=== PATIENT | male | born 1940 | race Caucasian/White ===

== ENCOUNTER 2018-08-01 11:51 | Emergency (ER) | payer OTHER ==
--- OUTSIDE RECORDS SUMMARY | 2018-08-01 11:54 | XMS REPORT | Continuity of Care Document ---
:1940 Author Organization Interface Problems Problem Status Onset Classification Date Comments Source Date Reported Essential Active Problem 06/30/2017 [place] hypertension [facility] Hypertensive Active Problem 07/28/2018 [place] chronic kidney Family disease with Practice stage 1 through stage 4 chronic kidney disease, or unspecified chronic kidney disease History of colon Active Problem 06/30/2017 [place] polyps [facility] HTN Active Problem 06/30/2017 [place] [Hypertension] [facility] Benign prostatic Active Problem 06/30/2017 [place] hypertophy with Family urinary Practice obstruction Chronic kidney Active Problem 06/30/2017 [place] disease, stage Family III Practice PRSNL HST Active Problem 06/30/2017 [place] COLONIC POLYPS Family Practice Weight loss, Active Problem 07/28/2018 [place] abnormal Family Practice Situational Active Problem 07/28/2018 [place] anxiety Family Practice BPH loc w urin Active Problem 07/28/2018 [place] obs/LUTS Family [facility] Neuropathy Active Problem 07/28/2018 [facility] Chronic kidney Active Problem 10/12/2017 [place] disease, stage Family II Practice Moderate single Active Problem 07/28/2018 [place] current episode Family of major Practice depressive disorder Lung nodule seen Active Problem 07/28/2018 [place] on imaging study Family Practice Obstructed, Active Problem 07/28/2018 [place] uropathy [facility] History of Active Problem 07/28/2018 [place] colonic polyps Family Practice Tobacco use Active Problem 07/28/2018 [facility] Hypotension, Active Problem 06/30/2017 [place] unspecified Family hypotension type Practice Obstructive Active Problem 04/28/2017 [place] uropathy [facility] Sebaceous cyst Active Diagnosis 02/23/2017 [facility] Urinary tract Active Diagnosis 02/23/2017 [place] infection Family without Practice hematuria, site unspecified Screen for colon Active Diagnosis 02/23/2017 [place] cancer [facility] Encounter for Active Diagnosis 03/05/2018 [place] screening, Family unspecified Practice Pyuria Active Diagnosis 04/22/2017 [facility] Chronic kidney Active Problem 07/28/2018 [place] disease, stage 2 Family Practice Rib lesion Active Diagnosis 07/08/2017 [facility] Generalized Active Diagnosis 07/06/2017 [facility] abdominal pain Family Practice Weight loss Active Diagnosis 07/06/2017 [facility] Encounter for Active Diagnosis 08/06/2017 [place] immunization Family Practice 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 [place] [facility] 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 Paresthesia Active Problem 07/28/2018 [facility] Paresthesia of Active Problem 06/28/2018 [place] both feet Family Practice Immunization due Active Diagnosis 06/28/2018 [facility] BMI 23.0-23.9, Active Diagnosis 07/28/2018 [place] [facility] adult [facility] Practice Trigger ring Active Diagnosis 03/05/2018 [place] finger of right Family hand Practice Cognitive Active Problem 07/28/2018 [facility] impairment [facility] Practice Loss of appetite Active Problem 07/28/2018 [facility] Impaired fasting Active Problem 07/28/2018 [facility] glucose [facility] abdominal Active Problem 07/28/2018 [facility] mass [facility] Practice Low energy Active Diagnosis 07/28/2018 [facility] Night sweats Active Diagnosis 07/28/2018 [facility] Current moderate Active Diagnosis 07/28/2018 [facility] episode of major Family depressive Practice disorder without prior episode Final: 02/14/2017 [facility] Hypertensive chronic kidney disease with stage 1 through stage 4 chronic kidney disease, or unspecified chronic kidney disease Final: 07/08/2017 [facility] Generalized abdominal pain Final: Abnormal 07/08/2017 [facility] weight loss Medications Medication Details Route Status Patient Ordering Order Source Instructions Provider Date escitalopram 1 tab(s) orally Active 10 mg orally Po[facility] once a day [address] [place] [address] Trintellix 1 tab(s) orally Active 5 mg orally [facility] once a day [address] [place] [address] mirtazapine 1 tab(s) orally Active 15 mg orally Po[facility] once a day (at [address] [place] [address] bedtime) [facility] Readi-Cat 2 450 mL, Inactive [facility] Susp, Oral, 017 Once, first dose 07/06/17 10:00:00 CDT, stop date 07/06/17 10:00:00 CDT Optiray 300 100 mL, Inactive [facility] Injection, 017 IV Push, Once, first dose 07/06/17 10:00:00 CDT, stop date 07/06/17 10:00:00 CDT Saline Lock 10 mL, No Longer [facility] Flush Soln, IV Active 017 Push, As Indicated PRN for flush, first dose 07/06/17 9:50:00 CDT mirtazapine 1 tab(s) orally Active 15 mg orally Pozzi Sugar once a day (at [facility] bedtime) [facility] clonazepam 1 tab(s) orally Active 0.5 mg orally Po[facility] 2-3 times a [facility] clonazepam 1 tab(s) orally Active 0.5 mg orally Po[facility] 2-3 times a [facility] clonazepam 1 tab(s) orally Active 0.5 mg orally [facility] Twice a day [facility] clonazepam 1 tab(s) orally Active 0.5 mg orally [facility] Twice a day [facility] clonazepam 1 tab(s) orally Active 0.5 mg orally [facility] Twice a day [facility] finasteride 1 tab(s) orally Active 5 mg orally [facility] once a day 016 [facility] finasteride 1 tab(s) orally Active 5 mg orally [facility] once a day 016 [facility] Zithromax Z-[place] one oral Active 250 mg oral 2 [facility] today, then 015 [facility] one [facility] lisinopril 1 tab(s) orally Active 20 mg orally [facility] once a day 015 [facility] Lisinopril TAKE ONE NA Active 20 mg [facility] TABLET BY [facility] DAILY [facility] finasteride 1 tab(s) orally Active 5 orally once [facility] a day [facility] Sulfamethoxazol 1 tab(s) orally Active 800 mg-160 mg [facility] e-Trimethoprim orally 2 times [place] DS a day [facility] Finasteride TAKE ONE NA Active 5 mg [facility] TABLET BY [facility] MOUTH DAILY [facility] Rapaflo 1 cap(s) orally Active 8 mg orally [facility] once a day [facility] Rapaflo 1 cap(s) orally Active 8 mg orally [facility] once a day [facility] mirtazapine not defined NA Active [facility] mirtazapine 1 tab(s) orally Active 45 mg orally [facility] Once at night [facility] Zoloft 1 tab(s) orally Active 50 mg orally [facility] once a day [facility] mirtazapine 1 tab(s) orally Active 30 mg orally [facility] Once at night [facility] Allergies, Adverse Reactions, Alerts Substance Category Reaction Severity Reaction Status Date Comments Source type Reported N.K.D.A. Adverse Info Not Adverse Active [facility] Reaction Available Reaction 8 [facility] Immunizations Immunization Date Given Site Status Last Comments Source Updated Influenza High 06/20/2018 completed [place] dose (pre-filled) [facility] Influenza High 07/26/2017 completed [place] dose [facility] (medicare-Pre-fil Practice led) Results Order Name Results Value Reference Date Interpretation Comments Source Range LABORATORY eGFR NonAFR 59 [facility] Amer mL/min/1.7 2016 3m2 LABORATORY Results Reported [facility] 2017 (07/06/17 9:52 AM) LABORATORY Creatinine 1.2 mg/dL 0.6 - 1.3 [facility] 2016 Vital Signs Vital Sign Value Date Comments Source Height 72 07/21/2018 [facility] Weight 170 07/21/2018 [facility] Temperature Oral (F) 96.7 F 07/21/2018 [facility] Diastolic (mm Hg) 78 07/21/2018 [facility] Systolic (mm Hg) 130 07/21/2018 [facility] Height 72 06/20/2018 [facility] Weight 175 06/20/2018 [facility] Temperature Oral (F) 96.7 F 06/20/2018 [facility] Diastolic (mm Hg) 72 06/20/2018 [facility] Systolic (mm Hg) 118 06/20/2018 [facility] Height 72 05/18/2018 [facility] Weight 172 05/18/2018 [facility] Temperature Oral (F) 96.9 F 05/18/2018 [facility] Diastolic (mm Hg) 86 05/18/2018 [facility] Systolic (mm Hg) 142 05/18/2018 [facility] Height 72 05/02/2018 [facility] Weight 175 05/02/2018 [facility] Temperature Oral (F) 96.3 F 05/02/2018 [facility] Diastolic (mm Hg) 80 05/02/2018 [facility] Systolic (mm Hg) 124 05/02/2018 [facility] Height 72 02/21/2018 [facility] Weight 177 02/21/2018 [facility] Temperature Oral (F) 97.2 F 02/21/2018 [facility] Diastolic (mm Hg) 72 02/21/2018 [facility] Systolic (mm Hg) 120 02/21/2018 [facility] Height 72 11/04/2017 [facility] Weight 181.8 11/04/2017 [facility] Temperature Oral (F) 97.6 F 11/04/2017 [facility] Diastolic (mm Hg) 78 11/04/2017 [facility] Systolic (mm Hg) 140 11/04/2017 [facility] Height 72 07/26/2017 [facility] Weight 179.2 07/26/2017 [facility] Temperature Oral (F) 97.4 F 07/26/2017 [facility] Diastolic (mm Hg) 90 07/26/2017 [facility] Systolic (mm Hg) 148 07/26/2017 [facility] Weight Measured 77.11 07/06/2017 [facility] Height 72 06/30/2017 [facility] Weight 173.6 06/30/2017 [facility] Temperature Oral (F) 97.3 F 06/30/2017 [facility] Diastolic (mm Hg) 82 06/30/2017 [facility] Systolic (mm Hg) 120 06/30/2017 [facility] Height 72 05/13/2017 [facility] Weight 177.8 05/13/2017 [facility] Temperature Oral (F) 97.3 F 05/13/2017 [facility] Diastolic (mm Hg) 78 05/13/2017 [facility] Systolic (mm Hg) 138 05/13/2017 [facility] Height 72 04/22/2017 [facility] Weight 176.2 04/22/2017 [facility] Temperature Oral (F) 97.6 F 04/22/2017 [facility] Diastolic (mm Hg) 78 04/22/2017 [facility] Systolic (mm Hg) 126 04/22/2017 [facility] Height 72 04/15/2017 [facility] Weight 180.6 04/15/2017 [facility] Temperature Oral (F) 97.7 F 04/15/2017 [facility] Diastolic (mm Hg) 66 04/15/2017 [facility] Systolic (mm Hg) 104 04/15/2017 [facility] Height 72 02/08/2017 [facility] Weight 198 02/08/2017 [facility] Temperature Oral (F) 96.4 F 02/08/2017 [facility] Diastolic (mm Hg) 64 02/08/2017 [facility] Systolic (mm Hg) 100 02/08/2017 [facility] Encounters Location Location Encounter Encounter Reason Attending ADM DC Status Source Details Type Number For Provider Date Date Visit [facility] Outpatient [id number] Joel Fortune 02/12 02/12 Active Surgical /2016 [facility] Outpatient [id number] Joel Fortune 02/12 02/13 [facility] Outpatient [id number] Joel Fortune 04/16 Active Surgical /2016 [facility] Outpatient [id number] Joel Fortune 04/16 04/17 [facility] Surgical [facility] Outpatient [id number] Joel Fortune 07/06 Active Surgical /2016 [facility] Outpatient [id number] Joel Fortune 07/06 07/07 [facility] Procedures Procedure Code Date Perfomer Comments Source
--- OUTSIDE RECORDS SUMMARY | 2018-08-01 11:54 | XMS REPORT | Clinical Summary ---
:1940 Author Organization [facility] Address [address] [place] [address] Care Team Providers Name Role Phone Joel Fortune MD Primary Care Provider Allergies No Known Allergies Current Medications Prescription Sig. Disp. Refills Start Date End Date Status finasteride (PROSCAR) 5 Take 1 tablet every Active mg tablet day by oral route. clonAZEPAM (KlonoPIN) 0.5 Take 0.5 mg by Active MG tablet mouth 2 (two) times a day as needed for seizures. mirtazapine (REMERON) 15 Take 15 mg by mouth Active MG tablet nightly. Active Problems Not on file Encounters Date Type Specialty Care Team Description 07/26/2018 Office Visit Orthopedic Surgery Levar Vogt, Trigger finger, right ring finger (Primary Dx) 03/03/2018 Office Visit Orthopedic Surgery Levar Vogt, Trigger finger, right ring finger (Primary Dx) after 07/31/2017 Family History Relation Name Status Comments Father Mother Social History Tobacco Use Types Packs/Day Years Used Date Current Some Day Smoker Cigars Smokeless Tobacco: Never Used Alcohol Use Drinks/Week oz/Week Comments Yes Sex Assigned at Date Recorded Not on file Last Filed Vital Signs Vital Sign Reading Time Taken Blood Pressure - - Pulse - - Temperature - - Respiratory Rate - - Oxygen Saturation - - Inhaled Oxygen Concentration - - Weight 77.1 kg (170 lb) 03/03/2018 9:10 AM CDT Height 182.9 cm (6') 03/03/2018 9:10 AM CDT Body Mass Index 23.06 03/03/2018 9:10 AM CDT Plan of Treatment Health Maintenance Due Date Last Done Comments COLON CANCER SCREENING 1992 SHINGRIX VACCINE (#1) 1992 ZOSTER VACCINE 2002 PNEUMOCOCCAL POLYSACCHARIDE VACCINE AGE 65 AND OVER 12/18/2007 PNEUMOCOCCAL-13 12/18/2007 INFLUENZA VACCINE 05/04/2018 07/04/2016 Procedures Procedure Name Priority Date/Time Associated Diagnosis Comments DE INJECT TENDON Routine 07/26/2018 2:50 PM Trigger finger, Results for this SHEATH/LIGAMENT CDT right ring finger procedure are in the results section. DE INJECT TENDON Routine 03/03/2018 9:10 AM Trigger finger, Results for this SHEATH/LIGAMENT CDT right ring finger procedure are in the results section. after 07/31/2017 Results Hand/Upper Extremity Injection/Arthrocentesis (07/26/2018 2:50 PM) Narrative Performed At Levar Vogt MD 07/26/20185:55 PM Hand/Upper Extremity Injection/Arthrocentesis Date/Time: 07/26/2018 3:38 PM Consent given by: patient Site marked: site marked Timeout: Immediately prior to procedure a time out was called to verify the correct patient, procedure, equipment, office support and site/side marked as required Supporting Documentation Indications: pain and therapeutic Procedure Details Condition: trigger finger Site: R ring finger Location: - R ring A1 Preparation: Patient was prepped and draped in the usual sterile fashion Right side: Needle size: 25 G Right ring finger medications administered: 40 mg methylPREDNISolone acetate 40 mg/mL; 1 mL lidocaine 10 mg/mL (1 %) Patient tolerance: patient tolerated the procedure well with no immediate complications Injection Type: tendon sheath Hand/Upper Extremity Injection/Arthrocentesis (03/03/2018 9:10 AM) Narrative Performed At Levar Vogt MD 03/03/2018 11:39 AM Hand/Upper Extremity Injection/Arthrocentesis Date/Time: 03/03/2018 9:42 AM Consent given by: patient Site marked: site marked Timeout: Immediately prior to procedure a time out was called to verify the correct patient, procedure, equipment, office support and site/side marked as required Supporting Documentation Indications: pain and therapeutic Procedure Details Condition: trigger finger Site: R ring finger Location: - R ring A1 Preparation: Patient was prepped and draped in the usual sterile fashion Right side: Needle size: 25 G Right ring finger medications administered: 40 mg methylPREDNISolone acetate 40 mg/mL; 1 mL lidocaine 10 mg/mL (1 %) Patient tolerance: patient tolerated the procedure well with no immediate complications Injection Type: tendon sheath Platelet Rich Plasma Used: no PRP Used Fluoroscopic Needle Guidance Used: no fluoroscopic needle guidance after 07/31/2017 Insurance Payer Benefit Plan / Group Subscriber ID Type Phone Address MEDICARE MEDICARE PART A AND B xxxxxxxxxx Medicare [place], [place] AARP AARP SUPPLEMENT xxxxxxxxxxx Commercial Home: [address] [phone] [address]
--- OUTSIDE RECORDS SUMMARY | 2018-08-01 11:55 | XMS REPORT ---
:1940 Author Organization [employer] Care Team Providers Name Role Phone Joel Fortune Provider Role Unavailable Allergies No Known Allergies Problems Problem Type Condition Code Onset Dates Condition Status Assessment Hypertensive chronic kidney disease I12.9 Active with stage 1 through stage 4 chronic kidney disease, or unspecified chronic kidney disease Problem Essential (primary) hypertension I10 Active Problem Hypertensive chronic kidney disease I12.9 Active with stage 1 through stage 4 chronic kidney disease, or unspecified chronic kidney disease Problem History of colon polyps Z86.010 Active Problem HTN [Hypertension] 401.9 Active Problem Benign prostatic hypertophy with 600.01 Active urinary obstruction Problem Chronic kidney disease, stage III N18.3 Active (moderate) Problem PRSNL HST COLONIC POLYPS V12.72 Active Medications No Known Medications Results No Known Results Summary Purpose [facility] Submission
--- OUTSIDE RECORDS SUMMARY | 2018-08-01 11:55 | XMS REPORT ---
:1940 Author Organization [employer] Care Team Providers Name Role Phone Joel Fortune Provider Role Unavailable Allergies, Adverse Reactions, Alerts Substance Reaction Event Type N.K.D.A. Info Not Available Non Drug Allergy Problems Problem Type Condition Code Onset Dates Condition Status Assessment Chronic kidney disease, stage III N18.3 Active (moderate) Assessment Sebaceous cyst L72.3 Active Assessment History of colon polyps Z86.010 Active Problem Essential (primary) hypertension I10 Active Problem [...] Problem PRSNL HST COLONIC POLYPS V12.72 Active Assessment Urinary tract infection without N39.0 Active hematuria, site unspecified Assessment Screen for colon cancer Z12.11 Active Assessment Encounter for screening, Z13.9 Active unspecified Assessment Hypertensive chronic kidney disease I12.9 Active with stage 1 through stage 4 chronic kidney disease, or unspecified chronic kidney disease Medications Medication Code System Code Instructions Start Date End Date Status Dosage lisinopril NDC 75429 20 mg orally once Jun 06, Active 1 tab(s) a day 2014 Lisinopril NDC 20551 20 mg Active TAKE ONE TABLET BY MOUTH DAILY finasteride NDC 14196 5 orally once a Active 1 tab(s) day Sulfamethoxazole NDC 7978 800 mg-160 mg Active 1 tab(s) -Trimethoprim DS orally 2 times a day finasteride NDC 02034 5 mg orally once Jul 18, Active 1 tab(s) a day 2015 Zithromax Z-Franklin NDC 3343 250 mg oral 2 Jul 02, Active one today, then one 2014 QD Finasteride NDC 00917 5 mg Active TAKE ONE TABLET BY MOUTH DAILY Vital Signs Date/Time: February 08, 2017 Height 72 in Weight 198 lbs Temperature 96.4 F BMI 26.85 Index Blood Pressure Diastolic 64 mm Hg Blood Pressure Systolic 100 mm Hg Results No Known Results Summary Purpose [employer]ClinicalWorks Submission
--- OUTSIDE RECORDS SUMMARY | 2018-08-01 11:55 | XMS REPORT ---
:1940 Author Organization [employer] Care Team Providers Name Role Phone JaxonashleyJoel Provider Role Unavailable Allergies, Adverse Reactions, Alerts Substance Reaction Event Type N.K.D.A. Info Not Available Non Drug Allergy Problems Problem Type Condition Code Onset Dates Condition Status Problem Chronic kidney disease, stage III N18.3 Active (moderate) Problem Essential (primary) hypertension I10 Active Problem Hypertensive chronic kidney disease I12.9 Active with stage 1 through stage 4 chronic kidney disease, or unspecified chronic kidney disease Problem 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 Problem Hypotension, unspecified I95.9 Active hypotension type Problem Situational anxiety F41.8 Active Problem Obstructive uropathy N13.9 Active Problem Neuropathy G62.9 Active Problem Weight loss, abnormal R63.4 Active Problem History of colon polyps Z86.010 Active Assessment Weight loss, abnormal R63.4 Active Problem Benign prostatic hypertophy with 600.01 Active urinary obstruction Assessment Hypertensive chronic kidney disease I12.9 Active with stage 1 through stage 4 chronic kidney disease, or unspecified chronic kidney disease Problem HTN [Hypertension] 401.9 Active Assessment Situational anxiety F41.8 Active Problem PRSNL HST COLONIC POLYPS V12.72 Active Medications Medication Code System Code Instructions Start Date End Date Status Dosage finasteride NDC 07028 5 mg orally once a Jul 18, Active 1 tab(s) day 2016 Rapaflo NDC 130429 8 mg orally once a Active 1 cap(s) day clonazepam NDC 42387 0.5 mg orally 2-3 April 16, Active 1 tab(s) times a day 2016 Vital Signs Date/Time: April 22, 2017 Height 72 in Weight 176.2 lbs Temperature 97.6 F BMI 23.89 Index Blood Pressure Diastolic 78 mm Hg Blood Pressure Systolic 126 mm Hg Results No Known Results Summary Purpose [employer]ClinicalWorks Submission
--- OUTSIDE RECORDS SUMMARY | 2018-08-01 11:55 | XMS REPORT ---
:1940 Author Organization [employer] Care Team Providers Name Role Phone BoydJoel norris Provider Role Unavailable Allergies No Known Allergies [...] History of colon polyps Z86.010 Active Problem Benign prostatic hypertophy with 600.01 Active urinary obstruction Problem HTN [Hypertension] 401.9 Active Problem PRSNL HST COLONIC POLYPS V12.72 Active Medications No Known Medications Results No Known Results Summary Purpose [facility] Submission
--- OUTSIDE RECORDS SUMMARY | 2018-08-01 11:55 | XMS REPORT ---
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
--- OUTSIDE RECORDS SUMMARY | 2018-08-01 11:55 | XMS REPORT ---
:1940 Author Organization [employer] Care Team Providers Name Role Phone Joel Fortune Provider Role Unavailable Allergies No Known Allergies Problems Problem Type Condition Code Onset Dates Condition Status Problem Essential (primary) hypertension I10 Active Problem [...] Medications Results No Known Results Summary Purpose [facility] Submission
--- OUTSIDE RECORDS SUMMARY | 2018-08-01 11:55 | XMS REPORT ---
:1940 Author Organization eClinicalWorks Care Team Providers Name Role Phone Boydmyrna Joel Provider Role Unavailable Allergies, Adverse Reactions, Alerts [...] disease, or unspecified chronic kidney disease Problem Situational anxiety F41.8 Active Problem 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 Problem Obstructed, uropathy N13.9 Active Problem History of colon polyps Z86.010 Active Problem Neuropathy G62.9 Active Problem Hypotension, unspecified I95.9 Active hypotension type Problem Weight loss, abnormal R63.4 Active Assessment 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 Assessment Essential (primary) hypertension I10 Active Assessment Weight loss, abnormal R63.4 Active Problem Benign prostatic hypertophy with 600.01 Active urinary obstruction Assessment Chronic kidney disease, stage III N18.3 Active (moderate) Problem HTN [Hypertension] 401.9 Active Assessment Obstructed, uropathy N13.9 Active Problem PRSNL HST COLONIC POLYPS V12.72 Active Medications Medication Code System Code Instructions Start End Date Status Dosage Date clonazepam ND 52227473240 0.5 mg orally 2-3 April 16, Active 1 tab(s) times a day 2016 finasteride ND 84748762602 5 mg orally once Jul 18, Active 1 tab(s) a day 2016 Rapaflo ND 11112205908 8 mg orally once Active 1 cap(s) a day Vital Signs Date/Time: May 13, 2017 Height 72 in Weight 177.8 lbs Temperature 97.3 F BMI 24.11 Index Blood Pressure Diastolic 78 mm Hg Blood Pressure Systolic 138 mm Hg Results No Known Results Summary Purpose eClinicalWorks Submission
--- OUTSIDE RECORDS SUMMARY | 2018-08-01 11:55 | XMS REPORT ---
:1940 Author Organization [employer] Care Team Providers Name Role Phone BoydJoel [...] type Problem Weight loss, abnormal R63.4 Active Problem Benign prostatic hypertophy with 600.01 Active urinary obstruction Problem HTN [Hypertension] 401.9 Active Problem PRSNL HST COLONIC POLYPS V12.72 Active Medications No Known Medications Results No Known Results Summary Purpose [employer] Submission
--- OUTSIDE RECORDS SUMMARY | 2018-08-01 11:55 | XMS REPORT ---
:1940 Author Organization eClinicalWorks Care Team Providers Name Role Phone JaxonJoel ramirez Provider Role Unavailable Allergies No Known Allergies Problems Problem Type Condition Code Onset Dates Condition Status Problem Weight loss, abnormal R63.4 Active Problem Situational anxiety F41.8 Active Problem 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 Assessment Rib lesion M89.9 Active Problem Neuropathy G62.9 Active Problem Hypertensive [...]
--- OUTSIDE RECORDS SUMMARY | 2018-08-01 11:55 | XMS REPORT ---
:1940 Author Organization [employer] Care Team Providers Name Role Phone Joel [...] Medications Results No Known Results Summary Purpose [employer] Submission
--- OUTSIDE RECORDS SUMMARY | 2018-08-01 11:55 | XMS REPORT ---
:1940 Author Organization [employer] Care Team Providers Name Role Phone Joel [...] Medications Results No Known Results Summary Purpose [employer] Submission
--- OUTSIDE RECORDS SUMMARY | 2018-08-01 11:55 | XMS REPORT ---
:1940 Author Organization eClinicalWorks Care Team Providers Name Role Phone JaxonashleyJoel Provider Role Unavailable Allergies, Adverse Reactions, Alerts Substance Reaction Event Type N.K.D.A. 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 Problem Neuropathy G62.9 Active Problem Essential (primary) hypertension I10 Active Problem History of colon polyps Z86.010 Active Problem Obstructive uropathy N13.9 Active Assessment History of colon polyps Z86.010 Active Assessment Neuropathy G62.9 Active Assessment Pyuria N39.0 Active Assessment Weight loss, abnormal R63.4 Active Assessment Hypotension, unspecified I95.9 Active hypotension type Assessment Obstructive uropathy N13.9 Active Problem Benign prostatic hypertophy with 600.01 Active urinary obstruction Assessment 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 Problem HTN [Hypertension] 401.9 Active Medications Medication Code System Code Instructions Start End Date Status Dosage Date finasteride NDC 95066 5 mg orally once Jul 18, Active 1 tab(s) a day 2015 Rapaflo NDC 733779 8 mg orally once Active 1 cap(s) a day Sulfamethoxazole NDC 7978 800 mg-160 mg Active 1 tab(s) -Trimethoprim DS orally 2 times a day lisinopril NDC 24461 20 mg orally Jun 06, Inactive 1 tab(s) once a day 2014 Vital Signs Date/Time: April 15, 2017 Height 72 in Weight 180.6 lbs Temperature 97.7 F BMI 24.49 Index Blood Pressure Diastolic 66 mm Hg Blood Pressure Systolic 104 mm Hg Results Name Result Date Reference Range Unit Abnormality Flag Q-TSH, 3RD GENERATION ----TSH 0.75 [id number] 0.40-4.50 mIU/L N Q-CBC (INCLUDES DIFF/PLT) ----ABSOLUTE EOSINOPHILS 21 20657034 15-500 cells/uL N ----MCV 91.3 93619077 80.0-100.0 fL N ----HEMATOCRIT 39.4 64464023 38.5-50.0 % N ----ABSOLUTE MONOCYTES 449 21146419 200-950 cells/uL N ----MCHC 33.0 99298446 32.0-36.0 g/dL N ----ABSOLUTE LYMPHOCYTES 1401 74154741 850-3900 cells/uL N ----MCH 30.1 57331009 27.0-33.0 pg N ----ABSOLUTE NEUTROPHILS 5003 93097772 7290-0544 cells/uL N ----MONOCYTES 6.5 96826153 % N ----WHITE BLOOD CELL 6.9 60051118 3.8-10.8 Thousand/uL N COUNT ----LYMPHOCYTES 20.3 53805700 % N ----NEUTROPHILS 72.5 05445908 % N ----HEMOGLOBIN 13.0 00995438 13.2-17.1 g/dL L ----ABSOLUTE BASOPHILS 28 49254290 0-200 cells/uL N ----RED BLOOD CELL COUNT 4.32 90652228 4.20-5.80 Million/uL N ----BASOPHILS 0.4 94713004 % N ----MPV 9.9 86344057 7.5-12.5 fL N ----EOSINOPHILS 0.3 96328973 % N ----RDW 14.3 85828137 11.0-15.0 % N ----PLATELET COUNT 236 09851728 140-400 Thousand/uL N Q-CMP W/EGFR ----ALBUMIN/GLOBULIN 2.1 46644539 1.0-2.5 (calc) N RATIO ----GLOBULIN 2.1 77559361 1.9-3.7 g/dL (calc) N ----ALKALINE PHOSPHATASE 54 50870635 40-115 U/L N ----BILIRUBIN, TOTAL 0.7 60546674 0.2-1.2 mg/dL N ----CHLORIDE 102 20170415 98-110 mmol/L N ----ALT 8 20170415 9-46 U/L L ----POTASSIUM 4.6 95358885 3.5-5.3 mmol/L N ----AST 16 20170415 10-35 U/L N ----SODIUM 136 33471485 135-146 mmol/L N ----BUN/CREATININE RATIO 18 20170415 6-22 (calc) N ----eGFR 65 86064373 > OR=60 mL/min/1.73m N [facility] 2 ----CALCIUM 9.5 82746705 8.6-10.3 mg/dL N ----CARBON DIOXIDE 26 20170415 20-31 mmol/L N ----ALBUMIN 4.5 76306656 3.6-5.1 g/dL N ----PROTEIN, TOTAL 6.6 31655241 6.1-8.1 g/dL N ----GLUCOSE 108 16130252 65-99 mg/dL H ----UREA NITROGEN (BUN) 22 20170415 7-25 mg/dL N ----CREATININE 1.25 43082181 0.70-1.18 mg/dL H ----eGFR NON-AFR. 56 99469664 > OR=60 mL/min/1.73m L [facility] 2 Q-SED RATE BY MODIFIED WESTERGREN ----SED RATE BY MODIFIED 2 48102493 < OR=20 mm/h N [place] Q-VITAMIN B12 ----VITAMIN B12 318 95899019 200-1100 pg/mL N Q-CULTURE, URINE ROUTINE Q-PROTEIN ELECTROPHORESIS SERUM ----GAMMA GLOBULINS 0.8 72778134 0.8-1.7 g/dL N ----[id number]-9-[id number] 0.6 76871387 0.5-0.9 g/dL N ----NBMNF-5-CRDDHJPSL 0.3 40508020 0.2-0.3 g/dL N ----ALBUMIN 4.3 26222216 3.8-4.8 g/dL N ----PROTEIN, TOTAL 6.7 43740415 6.1-8.1 g/dL N X RAY : CXR Summary Purpose eClinicalWorks Submission
--- OUTSIDE RECORDS SUMMARY | 2018-08-01 11:55 | XMS REPORT ---
[...] Medications Results No Known Results Summary Purpose [employer] Submission
--- OUTSIDE RECORDS SUMMARY | 2018-08-01 11:56 | XMS REPORT ---
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
--- OUTSIDE RECORDS SUMMARY | 2018-08-01 11:56 | XMS REPORT ---
[...] Medications Results No Known Results Summary Purpose [employer] Submission
--- OUTSIDE RECORDS SUMMARY | 2018-08-01 11:56 | XMS REPORT ---
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 Problem Lung nodule seen on imaging study R91.1 Active Problem Hypertensive chronic kidney disease I12.9 Active with stage 1 through stage 4 chronic kidney disease, or unspecified chronic kidney disease Problem Chronic kidney disease, stage 2 N18.2 Active (mild) Problem 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
--- OUTSIDE RECORDS SUMMARY | 2018-08-01 11:56 | XMS REPORT ---
:1940 Author Organization eClinicalWorks Care Team Providers Name Role Phone Jaxonashley Joel Provider Role Unavailable Allergies, Adverse Reactions, Alerts Substance Reaction Event Type N.K.D.A. 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 Problem Hypertensive chronic kidney disease I12.9 [...] Z86.010 Active Problem Tobacco use Z72.0 Active Assessment Lung nodule seen on imaging study R91.1 Active Assessment Tobacco use Z72.0 Active Assessment Hypertensive chronic kidney disease I12.9 Active with stage 1 through stage 4 chronic kidney disease, or unspecified chronic kidney disease Assessment Obstructed, uropathy N13.9 Active Assessment Generalized abdominal pain R10.84 Active Assessment 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 Assessment Weight loss R63.4 Active Problem Neuropathy G62.9 Active Medications Medication Code System Code Instructions Start End Date Status Dosage Date mirtazapine ND 50541687367 15 mg orally once Jun 30, Active 1 tab(s) a day (at 2017 bedtime) clonazepam NDC 72266021595 0.5 mg orally 2-3 April 16, Active 1 tab(s) times a day 2016 finasteride ND 74704588029 5 mg orally once Jul 18, Active 1 tab(s) a day 2015 Vital Signs Date/Time: Jun 30, 2017 Height 72 in Weight 173.6 lbs Temperature 97.3 F BMI 23.54 Index Blood Pressure Diastolic 82 mm Hg Blood Pressure Systolic 120 mm Hg Results Name Result Date Reference Range Unit Abnormality Flag Q-CMP W/EGFR ----ALBUMIN/GLOBULIN 1.9 [id number] 1.0-2.5 (calc) N RATIO ----GLOBULIN 2.4 58542997 1.9-3.7 g/dL (calc) N ----ALKALINE 59 52753118 40-115 U/L N PHOSPHATASE ----BILIRUBIN, TOTAL 0.8 94998185 0.2-1.2 mg/dL N ----CHLORIDE 104 12753672 98-110 mmol/L N ----ALT 13 68608624 9-46 U/L N ----POTASSIUM 4.6 57235096 3.5-5.3 mmol/L N ----AST 19 37913855 10-35 U/L N ----SODIUM 138 53181407 135-146 mmol/L N ----BUN/CREATININE 25 74230367 6-22 (calc) H RATIO ----eGFR 71 06284407 > OR=60 mL/min/1.73m2 N [place] ----CALCIUM 9.6 21928189 8.6-10.3 mg/dL N ----CARBON DIOXIDE 27 42635492 20-31 mmol/L N ----ALBUMIN 4.6 43489778 3.6-5.1 g/dL N ----PROTEIN, TOTAL 7.0 16024251 6.1-8.1 g/dL N ----GLUCOSE 111 02457056 65-99 mg/dL H ----UREA NITROGEN 29 69239816 7-25 mg/dL H (BUN) ----CREATININE 1.17 22903263 0.70-1.18 mg/dL N ----eGFR NON-AFR. 61 05618994 > OR=60 mL/min/1.73m2 N [place] Summary Purpose eClinicalWorks Submission
--- OUTSIDE RECORDS SUMMARY | 2018-08-01 11:56 | XMS REPORT ---
[...] Medications Results No Known Results Summary Purpose [employer] Submission
--- OUTSIDE RECORDS SUMMARY | 2018-08-01 11:56 | XMS REPORT ---
:1940 Author Organization eClinicalWorks Care Team Providers Name Role Phone JaxonashleyJoel Provider Role Unavailable Allergies, Adverse Reactions, Alerts Substance Reaction Event Type N.K.D.A. 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 Problem Lung nodule seen on imaging study R91.1 Active Problem Hypertensive chronic kidney disease I12.9 Active with stage 1 through stage 4 chronic kidney disease, or unspecified chronic kidney disease Assessment Trigger ring finger of right hand M65.341 Active Assessment Paresthesia R20.2 Active Assessment 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 Problem 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 Assessment Hypertensive chronic kidney disease I12.9 Active with stage 1 through stage 4 chronic kidney disease, or unspecified chronic kidney disease Problem Weight loss, abnormal R63.4 Active Assessment Encounter for screening, Z13.9 Active unspecified Problem Neuropathy G62.9 Active Medications Medication Code System Code Instructions Start End Date Status Dosage Date clonazepam NDC 17301628488 0.5 mg orally April 16, Active 1 tab(s) Twice a day prn 2017 mirtazapine NDC 06626010051 15 mg orally once February 21, Active 1 tab(s) a day (at 2018 bedtime) finasteride NDC 00116954922 5 mg orally once Jul 18, Active 1 tab(s) a day 2015 Vital Signs Date/Time: February 21, 2018 Height 72 in Weight 177 lbs Temperature 97.2 F BMI 24.00 Index Blood Pressure Diastolic 72 mm Hg Blood Pressure Systolic 120 mm Hg Results Name Result Date Reference Range Unit Abnormality Flag Q-CBC (INCLUDES DIFF/PLT) ----ABSOLUTE 4392 20180221 3610-9199 cells/uL N NEUTROPHILS ----MPV 10.8 65918385 7.5-12.5 fL N ----EOSINOPHILS 0.2 09369352 % N ----HEMOGLOBIN 14.2 83015609 13.2-17.1 g/dL N ----MONOCYTES 5.1 20180221 % N ----HEMATOCRIT 42.0 17060757 38.5-50.0 % N ----LYMPHOCYTES 22.2 20180221 % N ----MCV 87.7 33332761 80.0-100.0 fL N ----NEUTROPHILS 72 20180221 % N ----MCH 29.6 46992521 27.0-33.0 pg N ----ABSOLUTE 31 20180221 0-200 cells/uL N BASOPHILS ----MCHC 33.8 35635086 32.0-36.0 g/dL N ----BASOPHILS 0.5 21666097 % N ----ABSOLUTE 12 20180221 15-500 cells/uL L EOSINOPHILS ----RDW 12.9 85560474 11.0-15.0 % N ----WHITE BLOOD 6.1 20180221 3.8-10.8 Thousand/u N CELL COUNT L ----PLATELET COUNT 229 20180221 140-400 Thousand/u N L ----ABSOLUTE 311 20180221 200-950 cells/uL N MONOCYTES ----RED BLOOD CELL 4.79 20180221 4.20-5.80 Million/uL N COUNT ----ABSOLUTE 1354 20180221 850-3900 cells/uL N LYMPHOCYTES Q-TSH, 3RD GENERATION ----TSH 1.53 20180221 0.40-4.50 mIU/L N Fall/Function/Pain /Bladder assessment Q-CMP W/EGFR ----SODIUM 141 20180221 135-146 mmol/L N ----BUN/CREATININE NOT APPLICABLE 20180221 6-22 (calc) RATIO ----CHLORIDE 104 20180221 98-110 mmol/L N ----POTASSIUM 4.9 20180221 3.5-5.3 mmol/L N ----CALCIUM 9.5 20180221 8.6-10.3 mg/dL N ----PROTEIN, TOTAL 6.7 20180221 6.1-8.1 g/dL N ----CARBON DIOXIDE 32 20180221 20-31 mmol/L H ----ALBUMIN/GLOBUL 1.9 20180221 1.0-2.5 (calc) N IN RATIO ----eGFR NON-AFR. 63 20180221 > OR=60 mL/min/1.7 N [place] 3m2 ----BILIRUBIN, 0.5 20180221 0.2-1.2 mg/dL N TOTAL ----eGFR 73 20180221 > OR=60 mL/min/1.7 N [place] 3m2 ----UREA NITROGEN 22 20180221 7-25 mg/dL N (BUN) ----ALBUMIN 4.4 20180221 3.6-5.1 g/dL N ----GLOBULIN 2.3 20180221 1.9-3.7 g/dL N (calc) ----CREATININE 1.14 20180221 0.70-1.18 mg/dL N ----ALT 11 20180221 9-46 U/L N ----GLUCOSE 113 20180221 65-139 mg/dL N ----ALKALINE 61 20180221 40-115 U/L N PHOSPHATASE ----AST 14 20180221 10-35 U/L N Adv Directive Q-VITAMIN B12 ----VITAMIN B12 370 20180221 200-1100 pg/mL N Depression Screen Summary Purpose eClinicalWorks Submission
--- OUTSIDE RECORDS SUMMARY | 2018-08-01 11:56 | XMS REPORT ---
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
--- OUTSIDE RECORDS SUMMARY | 2018-08-01 11:56 | XMS REPORT ---
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
--- OUTSIDE RECORDS SUMMARY | 2018-08-01 11:56 | XMS REPORT ---
:1940 Author Organization eClinicalWorks Care Team Providers Name Role Phone Jaxonashley Joel Provider Role Unavailable Allergies No Known Allergies [...]
--- OUTSIDE RECORDS SUMMARY | 2018-08-01 11:56 | XMS REPORT ---
:1940 Author Organization eClinicalWorks Care Team Providers Name Role Phone Joel Fortune Provider Role Unavailable Allergies, Adverse Reactions, Alerts Substance Reaction Event Type N.K.D.A. 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 Assessment Chronic kidney disease, stage 2 N18.2 Active (mild) Assessment Obstructed, uropathy N13.9 Active Problem 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 Medications Medication Code System Code Instructions Start End Date Status Dosage Date clonazepam [facility] [place] 2] 11900448082 0.5 mg orally April 16, Active 1 tab(s) Twice a day prn 2016 finasteride ND 63339429218 5 mg orally once Jul 18, Active 1 tab(s) a day 2015 Vital Signs Date/Time: Nov 04, 2017 Height 72 in Weight 181.8 lbs Temperature 97.6 F BMI 24.65 Index Blood Pressure Diastolic 78 mm Hg Blood Pressure Systolic 140 mm Hg Results Name Result Date Reference Range Unit Abnormality Flag Depression Screen Fall/Function/Pain/Bladder assessment Adv Directive Summary Purpose eClinicalWorks Submission
--- OUTSIDE RECORDS SUMMARY | 2018-08-01 11:56 | XMS REPORT ---
[...] Medications Results No Known Results Summary Purpose [email or web address] Submission
--- OUTSIDE RECORDS SUMMARY | 2018-08-01 11:56 | XMS REPORT ---
[...] Active Problem Tobacco use Z72.0 Active Assessment Obstructed, uropathy N13.9 Active Assessment Weight loss, abnormal R63.4 Active Assessment Situational anxiety F41.8 Active Assessment Encounter for immunization Z23 Active Problem Neuropathy G62.9 Active Medications Medication Code System Code Instructions Start End Date Status Dosage Date clonazepam ND 41854255119 0.5 mg orally 2-3 April 16, Active 1 tab(s) times a day prn 2017 mirtazapine ND 19779064104 15 mg orally once Jun 30, Active 1 tab(s) a day (at 2017 bedtime) finasteride ND 72232701657 5 mg orally once Jul 18, Active 1 tab(s) a day 2015 Vital Signs Date/Time: Jul 26, 2017 Height 72 in Weight 179.2 lbs Temperature 97.4 F BMI 24.30 Index Blood Pressure Diastolic 90 mm Hg Blood Pressure Systolic 148 mm Hg Results Name Result Date Reference Range Unit Abnormality Flag Q-CMP W/EGFR ----ALBUMIN/GLOBULIN 1.9 [id number] 1.0-2.5 (calc) N RATIO ----GLOBULIN 2.2 20170726 1.9-3.7 g/dL (calc) N ----ALKALINE 63 38715691 40-115 U/L N PHOSPHATASE ----BILIRUBIN, TOTAL 0.6 33848480 0.2-1.2 mg/dL N ----CHLORIDE 102 80341678 98-110 mmol/L N ----ALT 22 90365236 9-46 U/L N ----POTASSIUM 4.3 18013293 3.5-5.3 mmol/L N ----AST 23 86215671 10-35 U/L N ----SODIUM 141 40284949 135-146 mmol/L N ----BUN/CREATININE 20 58366994 6-22 (calc) N RATIO ----eGFR 62 70408228 > OR=60 mL/min/1.73m2 N [place] ----CALCIUM 9.3 51076552 8.6-10.3 mg/dL N ----CARBON DIOXIDE 28 20715000 20-31 mmol/L N ----ALBUMIN 4.2 36258165 3.6-5.1 g/dL N ----PROTEIN, TOTAL 6.4 16411686 6.1-8.1 g/dL N ----GLUCOSE 111 54388379 65-99 mg/dL H ----UREA NITROGEN 26 49178103 7-25 mg/dL H (BUN) ----CREATININE 1.31 73860819 0.70-1.18 mg/dL H ----eGFR NON-AFR. 53 33306448 > OR=60 mL/min/1.73m2 L [place] Immunizations Vaccine Administration Date Influenza High dose (medicare-Pre-filled) Jul 26, 2017 Summary Purpose eClinicalWorks Submission
--- OUTSIDE RECORDS SUMMARY | 2018-08-01 11:57 | XMS REPORT ---
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 Problem Cognitive impairment R41.89 Active Problem Loss of appetite R63.0 Active Problem Impaired fasting glucose R73.01 Active Problem Paresthesia R20.2 Active Problem Chronic kidney disease, stage 2 N18.2 Active (mild) Problem LLQ abdominal mass R19.04 Active Problem 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 Assessment Situational anxiety F41.8 Active Problem 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 Problem Situational anxiety F41.8 Active Problem Obstructed, uropathy N13.9 Active Problem Neuropathy G62.9 Active Problem Tobacco use Z72.0 Active Problem Weight loss, abnormal R63.4 Active Problem Hypertensive chronic kidney disease I12.9 Active with stage 1 through stage 4 chronic kidney disease, or unspecified chronic kidney disease Medications Medication Code System Code Instructions Start Date End Date Status Dosage clonazepam [facility] 23004239741 0.5 mg orally April 16, Active 1 tab(s) Twice a day prn 2017 Results No Known Results Summary Purpose eClinicalWorks Submission
--- OUTSIDE RECORDS SUMMARY | 2018-08-01 11:57 | XMS REPORT ---
[...] Start Date End Date Status Dosage clonazepam [facility] [id number] 0.5 mg orally April 16, Active 1 tab(s) Twice a day prn 2017 Results No Known Results Summary Purpose eClinicalWorks Submission
--- OUTSIDE RECORDS SUMMARY | 2018-08-01 11:57 | XMS REPORT ---
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 Problem Neuropathy G62.9 Active Assessment Paresthesia of both feet R20.2 Active Problem Situational anxiety F41.8 Active Medications Medication Code Code Instructions Start End Date Status Dosage System Date mirtazapine NDC 0 Active not defined clonazepam [facility] 45179216739 0.5 mg orally April 16, Active 1 tab(s) Twice a day prn 2016 finasteride ND 65832268940 5 mg orally once Jul 18, Active 1 tab(s) a day 2015 Vital Signs Date/Time: May 02, 2018 Height 72 in Weight 175 lbs Temperature 96.3 F BMI 23.73 Index Blood Pressure Diastolic 80 mm Hg Blood Pressure Systolic 124 mm Hg Results No Known Results Summary Purpose eClinicalWorks Submission
--- OUTSIDE RECORDS SUMMARY | 2018-08-01 11:57 | XMS REPORT ---
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 Problem Situational anxiety F41.8 Active Medications Medication Code Code Instructions Start End Date Status Dosage System Date Zoloft [facility] 15509381709 50 mg orally Inactive 1 tab(s) once a day clonazepam [facility] 90924539696 0.5 mg orally April 16, Active 1 tab(s) Twice a day prn 2016 mirtazapine [facility] 00694139040 30 mg orally Active 1 tab(s) Once at night finasteride [facility] 91594320997 5 mg orally once Jul 18, Active 1 tab(s) a day 2015 Vital Signs Date/Time: May 18, 2018 Height 72 in Weight 172 lbs Temperature 96.9 F BMI 23.32 Index Blood Pressure Diastolic 86 mm Hg Blood Pressure Systolic 142 mm Hg Results No Known Results Summary Purpose eClinicalWorks Submission
--- OUTSIDE RECORDS SUMMARY | 2018-08-01 11:57 | XMS REPORT ---
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 Problem Situational anxiety F41.8 Active Medications Medication Code System Code Instructions Start End Date Status Dosage Date finasteride ND 14575731445 5 mg orally once Jul 18, Active 1 tab(s) a day 2015 mirtazapine ND 00332915206 45 mg orally Once Active 1 tab(s) at night clonazepam ND 64957221644 0.5 mg orally April 16, Active 1 tab(s) Twice a day prn 2017 Vital Signs Date/Time: Jun 20, 2018 Height 72 in Weight 175 lbs Temperature 96.7 F BMI 23.73 Index Blood Pressure Diastolic 72 mm Hg Blood Pressure Systolic 118 mm Hg Results No Known Results Immunizations Vaccine Administration Date Influenza High dose (pre-filled) Jun 20, 2018 Summary Purpose eClinicalWorks Submission
--- OUTSIDE RECORDS SUMMARY | 2018-08-01 11:57 | XMS REPORT ---
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 Problem Situational anxiety F41.8 Active Problem Obstructed, uropathy N13.9 Active Problem Neuropathy G62.9 Active Problem Tobacco use Z72.0 Active Problem Weight loss, abnormal R63.4 Active Problem Hypertensive chronic kidney disease I12.9 Active with stage 1 through stage 4 chronic kidney disease, or unspecified chronic kidney disease Medications Medication Code Code Instructions Start End Status Dosage System Date Date mirtazapine [facility] [id number] 45 mg orally Inactive 1 tab(s) Once at night escitalopram [facility] 03656229100 10 mg orally Jul 25, Active 1 tab(s) once a day 2018 Results No Known Results Summary Purpose eClinicalWorks Submission
--- OUTSIDE RECORDS SUMMARY | 2018-08-01 11:57 | XMS REPORT ---
:1940 Author Organization eClinicalWorks Care Team Providers Name Role Phone JaxonashleyJoel Provider Role Unavailable Allergies, Adverse Reactions, Alerts Substance Reaction Event Type N.K.D.A. Info Not Available Non Drug Allergy Problems Problem Type Condition Code Onset Dates Condition Status Assessment LLQ abdominal mass R19.04 Active Assessment Low energy R53.83 Active Problem Tobacco use Z72.0 Active Assessment Night sweats R61 Active Problem Hypertensive chronic kidney disease I12.9 Active with stage 1 through stage 4 chronic kidney disease, or unspecified chronic kidney disease Assessment Cognitive impairment R41.89 Active Problem History of colonic polyps Z86.010 Active Problem Lung nodule seen on imaging study R91.1 Active Problem 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 Problem Cognitive impairment R41.89 Active Problem Loss of appetite R63.0 Active Assessment Situational anxiety F41.8 Active Assessment Current moderate episode of major F32.1 Active depressive disorder without prior episode Problem Impaired fasting glucose R73.01 Active Assessment Loss of appetite R63.0 Active Problem Paresthesia R20.2 Active Problem Chronic kidney disease, stage 2 N18.2 Active (mild) Problem LLQ abdominal mass R19.04 Active Problem 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 Assessment BMI 23.0-23.9, adult Z68.23 Active Problem 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 Assessment Impaired fasting glucose R73.01 Active Assessment Paresthesia R20.2 Active Problem Situational anxiety F41.8 Active Problem Obstructed, uropathy N13.9 Active Problem Neuropathy G62.9 Active Problem Weight loss, abnormal R63.4 Active Medications Medication Code System Code Instructions Start End Date Status Dosage Date finasteride NDC 38004549325 5 mg orally once Jul 18, Active 1 tab(s) a day 2015 clonazepam NDC 94727973145 0.5 mg orally April 16, Active 1 tab(s) Twice a day prn 2016 Trintellix NDC 04389824592 5 mg orally once Jul 21, Active 1 tab(s) a day 2017 mirtazapine [facility] 72263103311 45 mg orally Once Active 1 tab(s) at night Vital Signs Date/Time: Jul 21, 2018 Height 72 in Weight 170 lbs Temperature 96.7 F BMI 23.05 Index Blood Pressure Diastolic 78 mm Hg Blood Pressure Systolic 130 mm Hg Results No Known Results Summary Purpose eClinicalWorks Submission
[2018-08-01 14:52] LABS: Absolute Lymphocytes (CBC) 1.3 K/uL (0.7-4.9); Absolute Monocytes 0.4 K/uL (0.1-1.3); Absolute Neutrophil 5.4 K/uL (1.8-8.0); Basophils % 0.6 % (0-1.3); Eosinophils % 0.3 % (0-4.4); Hematocrit 41.8 % (39.6-49.0); Lymphocytes % 17.9 % (15.3-44.8); MCH 30.3 pg (27.0-35.0); MCV 89.2 fL (80-100); MPV 8.4 fL (7.6-11.3); Monocytes % 5.9 % (3.3-12.3); RBC Red Blood Cell Count 4.68 M/uL (4.33-5.43)
[2018-08-01 15:00] LABS: Protime INR 0.99
[2018-08-01 15:19] LABS: ALT/SGPT 22 U/L (12-78); AST/SGOT 17 U/L (15-37); Alkaline Phosphatase 67 U/L (45-117); BUN Blood Urea Nitrogen 25 mg/dL (7-18); Bicarbonate 27 mmol/L (21-32); Bilirubin Direct 0.2 mg/dL (0-0.2); Bilirubin Total 0.6 mg/dL (0.2-1.0); Glucose Level 96 mg/dL (74-106); Magnesium 2.3 mg/dL (1.8-2.4); NT PRO-BNP 49 pg/mL (<450); Potassium 4.3 mmol/L (3.5-5.1); Protein, Total 7.1 g/dL (6.4-8.2); Sodium Level 140 mmol/L (136-145); Troponin (Emerg Dept Use Only) < 0.02 ng/mL (0.0-0.045)
--- NOTE | 2018-08-01 15:23 | RAD REPORT ---
EXAM DESCRIPTION: RAD - Chest Single View - 08/01/2018 2:57 pm CLINICAL HISTORY: Weight loss, shortness of breath COMPARISON: None. TECHNIQUE: AP portable chest image was obtained 1443 hours . FINDINGS: Lungs are clear. Heart and vasculature are normal. No measurable pleural effusion and no p neumothorax. No acute bony abnormality seen. No acute aortic findings suspected. IMPRESSION: No acute cardiopulmonary process.
--- NOTE | 2018-08-01 16:13 | EDPHYS ---
Physician Documentation [facility] Name: Anil Dasilva Age: 77 yrs Sex: Male : 1940 Arrival Date: 08/01/2018 Time: 11:52 Bed 23 Private MD: ED Physician Yoel Lewis HPI: 08/01 15:08 This 77 yrs old Male presents to ER via Ambulatory with complaints of Bloody jr8 Stools, Fatigue. 15:08 The patient presents to the emergency department with rectal bleeding. Onset: The jr8 symptoms/episode began/occurred acutely, today. Modifying factors: The symptoms are alleviated by nothing, the symptoms are aggravated by nothing. Associated signs and symptoms: The patient has no apparent associated signs or symptoms. Severity of symptoms: At their worst the symptoms were mild in the emergency department the symptoms have resolved. The patient has not experienced similar symptoms in the past. The patient has not recently seen a physician. Patient stated that he had CT of abdomen this past Wednesday for fullness feeling in abdomen. Saw adrenal mass on scan but has not followed up yet for further discussion of this. Stated that he has been depressed for some time and has had weight loss, decreased appetite, and fatigue. Today had moderate amount of BRBPR noted with bowel movement. No pain, nausea, diarrhea, or fevers currently. Historical: - Allergies: 12:13 No Known Allergies; ph - Home Meds: 12:15 citalopram oral [Active]; Clonazepam Oral [Active]; finasteride oral oral [Active]; ph - PMHx: 12:13 Depression; ph - PSHx: 12:13 None; ph - Immunization history:: Adult Immunizations unknown. - Social history:: Smoking status: Patient uses tobacco products, denies chronic smoking, but will smoke occasionally, cigars. - Ebola Screening: : No symptoms or risks identified at this time. ROS: 15:08 Eyes: Negative for injury, pain, redness, and discharge, ENT: Negative for injury, jr8 pain, and discharge, Neck: Negative for injury, pain, and swelling, Cardiovascular: Negative for chest pain, palpitations, and edema, Respiratory: Negative for shortness of breath, cough, wheezing, and pleuritic chest pain, Back: Negative for injury and pain, MS/Extremity: Negative for injury and deformity, Skin: Negative for injury, rash, and discoloration, Neuro: Negative for headache, weakness, numbness, tingling, and seizure. 15:08 Abdomen/GI: Positive for rectal bleeding, Negative for abdominal pain, nausea, vomiting, and diarrhea, abdominal distension, anorexia, dysphagia, hematemesis, black/tarry stool, rectal pain, bowel incontinence, flatulence. Exam: 15:08 Eyes: Pupils equal round and reactive to light, extra-ocular motions intact. Lids and jr8 lashes normal. Conjunctiva and sclera are non-icteric and not injected. Cornea within normal limits. Periorbital areas with no swelling, redness, or edema. ENT: Nares patent. No nasal discharge, no septal abnormalities noted. Tympanic membranes are normal and external auditory canals are clear. Oropharynx with no redness, swelling, or masses, exudates, or evidence of obstruction, uvula midline. Mucous membranes moist. Neck: Trachea midline, no thyromegaly or masses palpated, and no cervical lymphadenopathy. Supple, full range of motion without nuchal rigidity, or vertebral point tenderness. No Meningismus. Cardiovascular: Regular rate and rhythm with a normal S1 and S2. No gallops, murmurs, or rubs. Normal PMI, no JVD. No pulse deficits. Respiratory: Lungs have equal breath sounds bilaterally, clear to auscultation and percussion. No rales, rhonchi or wheezes noted. No increased work of breathing, no retractions or nasal flaring. Back: No spinal tenderness. No costovertebral tenderness. Full range of motion. Skin: Warm, dry with normal turgor. Normal color with no rashes, no lesions, and no evidence of cellulitis. MS/ Extremity: Pulses equal, no cyanosis. Neurovascular intact. Full, normal range of motion. Neuro: Awake and alert, GCS 15, oriented to person, place, time, and situation. Cranial nerves II-XII grossly intact. Motor strength 5/5 in all extremities. Sensory grossly intact. Cerebellar exam normal. Normal gait. 15:08 Abdomen/GI: Inspection: abdomen appears normal, Bowel sounds: active, all quadrants, Palpation: soft, in all quadrants, nontender, in all quadrants, Rectal exam: Prostate: enlarged, rectal tone normal, Stool: brown, guaiac negative, hemorrhoid(s), external, without bleeding, without inflammation, without thrombosis, without pain, mass, is not appreciated, swelling, is not appreciated, tenderness, is not appreciated, the exam is chaperoned by an geodetic surveyor technologist, Indicators: McBurney's point is not tender, Strong's sign is negative, Rovsing's sign is negative, Liver: no appreciated palpable abnormalities, tenderness, is not appreciated. Vital Signs: 12:11 BP 108 / 82; Pulse 67; Resp 18; Temp 97.5; Pulse Ox 98% on R/A; Weight 72.57 kg; Height ph 6 ft. 0 in. (182.88 cm); 13:57 BP 133 / 82; Pulse 53; Resp 18; Pulse Ox 96% on R/A; aj1 16:13 BP 141 / 94; Pulse 66; Resp 16; Pulse Ox 98% on R/A; aj1 12:11 Body Mass Index 21.70 (72.57 kg, 182.88 cm) ph MDM: 14:07 Patient medically screened. jr8 16:05 Data reviewed: vital signs, nurses notes, old medical records, lab test result(s), and jr8 as a result, I will discharge patient. Data interpreted: Pulse oximetry: on room air is 96 %. Interpretation: normal. Counseling: I had a detailed discussion with the patient and/or guardian regarding: the historical points, exam findings, and any diagnostic results supporting the discharge/admit diagnosis, lab results, the need for outpatient follow up, a digital intern, to return to the emergency department if symptoms worsen or persist or if there are any questions or concerns that arise at home. 16:10 ED course: Discussed with patient that there are no acute findings on labs or rectal jr8 exam. No acute findings on imaging today and from his CT that was done 3 days ago. Patient knows about the adrenal mass and following up with PCP about this. Will discharge home to follow up with GI. If worse to come back . 08/01 14:27 Order name: Basic Metabolic Panel; Complete Time: 15: jr8 08/01 14:27 Order name: CBC with Diff; Complete Time: 15:03 jr8 08/01 14:27 Order name: LFT's; Complete Time: 15:52 jr8 08/01 14:27 Order name: Magnesium; Complete Time: 15: jr8 08/01 14:27 Order name: NT PRO-BNP; Complete Time: 15:52 08/01 14:27 Order name: PT-INR; Complete Time: 15:05 08/01 14:27 Order name: Troponin (emerg Dept Use Only); Complete Time: 15:52 08/01 14:27 Order name: XRAY Chest (1 view); Complete Time: 15:52 08/01 14:27 Order name: EKG; Complete Time: 14:28 08/01 14:27 Order name: Cardiac monitoring; Complete Time: 14:55 08/01 14:27 Order name: EKG - Nurse/Tech; Complete Time: 14:55 08/01 14:27 Order name: TSH; Complete Time: 15:52 08/01 14:27 Order name: T4 Free; Complete Time: 15:52 08/01 16:11 Order name: Occult Blood--Ancillary bd 08/01 14:27 Order name: IV Saline Lock; Complete Time: 14:55 08/01 14:27 Order name: Labs collected and sent; Complete Time: 14:55 08/01 14:27 Order name: O2 Per Protocol; Complete Time: 14:55 08/01 14:27 Order name: O2 Sat Monitoring; Complete Time: 14:55 Administered Medications: No medications were administered Disposition: 08/02 09:23 Co-signature as Attending Physician, Yoel Lewis MD I agree with the assessment and darryl plan of care. Disposition: 08/01/18 16:13 Discharged to Home. Impression: Rectal Bleeding . - Condition is Stable. - Discharge Instructions: Gastrointestinal Bleeding, Rectal Bleeding. - Medication Reconciliation Form, Thank You Letter, Antibiotic Education, Prescription Opioid Use form. - Follow up: Private Physician; When: 2 - 3 days; Reason: Recheck today's complaints, Continuance of care, Re-evaluation by your physician. - Problem is new. - Symptoms have improved. Signatures: Dispatcher [employer] Yoel Crandall MD MD cha Smirch, Shelby RN RN Rico Gandhi PA PA jr8 Tia White RN RN ph Corrections: (The following items were deleted from the chart) 08/01 16:10 15:08 Abdomen/GI: Inspection: abdomen appears normal, Bowel sounds: active, all jr8 quadrants, Palpation: soft, in all quadrants, nontender, in all quadrants, Indicators: McBurney's point is not tender, Strong's sign is negative, Rovsing's sign is negative, Liver: no appreciated palpable abnormalities, tenderness, is not appreciated, jr8 16:20 16:13 08/01/2018 16:13 Discharged to Home. Impression: Rectal Bleeding . Condition is ss Stable. Forms are Medication Reconciliation Form, Thank You Letter, Antibiotic Education, Prescription Opioid Use. Follow up: Private Physician; When: 2 - 3 days; Reason: Recheck today's complaints, Continuance of care, Re-evaluation by your physician. Problem is new. Symptoms have improved. jr8
--- NOTE | 2018-08-01 16:13 | ER ---
Nurse's Notes [facility] Name: Anil Dasilva Age: 77 yrs Sex: Male : 1940 Arrival Date: 08/01/2018 Time: 11:52 Bed 23 Private MD: Diagnosis: Rectal Bleeding Presentation: 08/01 12:09 Presenting complaint: Patient states: Bright red blood in stool this morning, ph discomfort in LLQ, nausea, general weakness, decreased mental clarity, and lack of appetite, denies dizziness, SOB, or fever. Transition of care: patient was not received from another setting of care. Onset of symptoms was August 01, 2018. Risk Assessment: Do you want to hurt yourself or someone else? Patient reports no desire to harm self or others. Care prior to arrival: None. 12:09 Method Of Arrival: Ambulatory ph 12:09 Acuity: NINA 3 ph Historical: - Allergies: 12:13 No Known Allergies; ph - Home Meds: 12:15 citalopram oral [Active]; Clonazepam Oral [Active]; finasteride oral oral [Active]; ph - PMHx: 12:13 Depression; ph - PSHx: 12:13 None; ph - Immunization history:: Adult Immunizations unknown. - Social history:: Smoking status: Patient uses tobacco products, denies chronic smoking, but will smoke occasionally, cigars. - Ebola Screening: : No symptoms or risks identified at this time. Screenin:45 Abuse screen: Denies threats or abuse. Denies injuries from another. Nutritional aj1 screening: No deficits noted. Tuberculosis screening: No symptoms or risk factors identified. Assessment: 13:45 General: Appears in no apparent distress. comfortable, Behavior is calm, cooperative, aj1 appropriate for age. Pain: Complains of pain in left lower quadrant Pain does not radiate. Pain currently is 2 out of 10 on a pain scale. Quality of pain is described as dull. Neuro: Level of Consciousness is awake, alert, obeys commands, Oriented to person, place, time, situation. Cardiovascular: Patient's skin is warm and dry. Respiratory: Airway is patent Respiratory effort is even, unlabored, Respiratory pattern is regular, symmetrical. GI: Abdomen is flat, non-distended, Reports bloody stool. : No signs and/or symptoms were reported regarding the genitourinary system. EENT: No signs and/or symptoms were reported regarding the EENT system. Derm: No signs and/or symptoms reported regarding the dermatologic system. Skin is pink, warm \T\ dry. normal. Musculoskeletal: No signs and/or symptoms reported regarding the musculoskeletal system. Circulation, motion, and sensation intact. 14:45 Reassessment: Patient appears in no apparent distress at this time. No changes from aj1 previously documented assessment. Patient and/or family updated on plan of care and expected duration. Pain level reassessed. Patient is alert, oriented x 3, equal unlabored respirations, skin warm/dry/pink. 15:45 Reassessment: Patient and/or family updated on plan of care and expected duration. Pain aj1 level reassessed. General: Appears in no apparent distress. comfortable. Pain: Denies pain. Neuro: Level of Consciousness is awake, alert, obeys commands. Cardiovascular: Patient's skin is warm and dry. Rhythm is sinus rhythm. Respiratory: Airway is patent Respiratory effort is even, unlabored, Respiratory pattern is regular, symmetrical. GI: Abdomen is flat, non-distended. Derm: No signs and/or symptoms reported regarding the dermatologic system. Skin is pink, warm \T\ dry. normal. Musculoskeletal: No signs and/or symptoms reported regarding the musculoskeletal system. Circulation, motion, and sensation intact. 16:13 Reassessment: Patient appears in no apparent distress at this time. No changes from aj1 previously documented assessment. Patient and/or family updated on plan of care and expected duration. Pain level reassessed. Patient is alert, oriented x 3, equal unlabored respirations, skin warm/dry/pink. Vital Signs: 12:11 BP 108 / 82; Pulse 67; Resp 18; Temp 97.5; Pulse Ox 98% on R/A; Weight 72.57 kg; Height ph 6 ft. 0 in. (182.88 cm); 13:57 BP 133 / 82; Pulse 53; Resp 18; Pulse Ox 96% on R/A; aj1 16:13 BP 141 / 94; Pulse 66; Resp 16; Pulse Ox 98% on R/A; aj1 12:11 Body Mass Index 21.70 (72.57 kg, 182.88 cm) ph ED Course: 11:52 Patient arrived in ED. as 12:11 Triage completed. ph 12:13 Arm band placed on. ph 13:35 Lia Reza, RN is Primary Nurse. aj1 13:45 Patient has correct armband on for positive identification. Bed in low position. Call aj1 light in reach. Side rails up X 1. 13:45 No provider procedures requiring assistance completed. aj1 14:07 Rico Felder PA is PHCP. jr8 14:07 Yoel Lewis MD is Attending Physician. jr8 14:45 Initial lab(s) drawn, by me, sent to lab. Inserted saline lock: 20 gauge in right jp3 forearm, using aseptic technique. Blood collected. 14:51 Warm blanket given. Pillow given. Diet: Patient given water. quality assurance monitor final on. Pulse jp3 ox on. NIBP on. 14:56 X-ray completed. Portable x-ray completed in exam room. Patient tolerated procedure ls3 well. 14:57 XRAY Chest (1 view) In Process Unspecified. EDMS 15:00 EKG done, by engine emission technician. reviewed by Rico CLINE. at1 16:20 IV discontinued, intact, bleeding controlled, No redness/swelling at site. Pressure ss dressing applied. Administered Medications: No medications were administered Outcome: 16:13 Discharge ordered by . jr8 16:20 Discharged to home ambulatory, with family. 16:20 Condition: good 16:20 Discharge instructions given to patient, family, Instructed on discharge instructions, follow up and referral plans. medication usage, Demonstrated understanding of instructions, follow-up care, medications. 16:20 Patient left the ED. ss Signatures: Dispatcher [employer] EDNC Lia Reza, RN RN aj1 Lorri Montaño Shelby, RN RN Rico Felder PA PA jr8 Laura Cam, bill of materials clerk EKG Tat1 Tia White RN RN Curtis Rodriguez jp3 Yaneth Steward ls3
--- NOTE | 2018-08-02 07:02 | EKG ---
Test Date: 2018-08-01 Test Time: 14:52:47 Industrial Relations Analyst: LUC MEASUREMENT RESULTS: Intervals: Rate: 60 VA: 178 QRSD: 152 QT: 442 QTc: 442 [place]: P: 75 VA: 178 QRS: -62 T: 55 INTERPRETIVE STATEMENTS: Normal sinus rhythm Right bundle branch block Left anterior fascicular block Bifascicular block Abnormal ECG No previous ECG available for comparison Electronically Signed On 08-02-18 07:01:46 CDT by Flynn Lynch
== END 2018-08-01 16:20 | disposition home or self-care (01) ==
LOC: ER 11:51
DX: K62.5 Hemorrhage of anus and rectum (principal); F32.9 Major depressive disorder, single episode, unspecified
CPT/HCPCS: 36415; 71045; 80048; 80076; 83735; 83880; 84439; 84443; 84484; 85025; 85610; 93005; 99284

== ENCOUNTER 2019-01-22 11:38 | Emergency (ER) | payer OTHER, MEDICARE ==
--- OUTSIDE RECORDS SUMMARY | 2019-01-22 11:41 | XMS REPORT | Clinical Summary ---
:1940 Author Organization [facility] Address [address] [place] [address] Care Team Providers Name Role Phone Joel Fortune MD Primary Care Provider Allergies No Known Allergies Medications Medication Sig Dispensed Refills Start Date End Date Status finasteride (PROSCAR) 5 Take 1 tablet 0 Active mg tablet every day by oral route. clonAZEPAM (KlonoPIN) Take 0.5 mg by 0 Active 0.5 MG tablet mouth 2 (two) times a day as needed for seizures. mirtazapine (REMERON) Take 15 mg by 0 Active 15 MG tablet mouth nightly. Active Problems Not on file Encounters Date Type Specialty Care Team Description 07/26/2018 Office Visit Orthopedic Surgery Levar Vogt, Trigger finger, right MD ring finger (Primary Dx) 03/03/2018 Office Visit Orthopedic Surgery Levar Vogt, Trigger finger, right MD ring finger (Primary Dx) after 01/21/2018 Family History Relation Name Status Comments Father Mother Social History Tobacco Use Types Packs/Day Years Used Date Current Some Day Smoker Cigars Smokeless Tobacco: Never Used Alcohol Use Drinks/Week oz/Week Comments Yes Sex Assigned at Date Recorded Not on file Job Start Date Occupation Industry Not on file Not on file Not on file Travel History Travel Start Travel End No recent travel history available. Last Filed Vital Signs Vital Sign Reading [...] Health Maintenance Due Date Last Done Comments SHINGLES VACCINES (#1) 1992 65+ PNEUMOCOCCAL VACCINE (1 of 2 - PCV13) 12/18/2007 PNEUMOCOCCAL POLYSACCHARIDE VACCINE AGE 65 AND OVER 12/18/2007 INFLUENZA VACCINE 05/04/2019 07/04/2016 Procedures Procedure Name Priority Date/Time Associated Diagnosis Comments MD INJECT TENDON Routine 07/26/2018 2:50 PM Trigger finger, Results for this SHEATH/LIGAMENT CDT right ring finger procedure are in the results section. MD INJECT TENDON Routine 03/03/2018 9:10 AM Trigger finger, Results for this SHEATH/LIGAMENT CDT right ring finger procedure are in the results section. after 01/21/2018 Results Hand/Upper Extremity Injection/Arthrocentesis (07/26/2018 2:50 PM CDT) Narrative Performed At Levar Vogt MD 07/26/20185:55 PM Hand/Upper Extremity Injection/Arthrocentesis Date/Time: 07/26/2018 3:38 PM Consent given by: patient Site marked: site marked Timeout: Immediately prior to procedure a time out was called to verify the correct patient, procedure, equipment, claims support specialist and site/side marked as required Supporting Documentation [...] tendon sheath Hand/Upper Extremity Injection/Arthrocentesis (03/03/2018 9:10 AM CDT) Narrative Performed At Levar Vogt MD 03/03/2018 11:39 AM Hand/Upper Extremity Injection/Arthrocentesis Date/Time: 03/03/2018 9:42 AM Consent given by: patient Site marked: site marked Timeout: Immediately prior to procedure a time out was called to verify the correct patient, procedure, equipment, claims support specialist and site/side marked as required Supporting Documentation [...] Guidance Used: no fluoroscopic needle guidance after 01/21/2018 Insurance Payer Benefit Plan / Group Subscriber ID Type Phone Address MEDICARE MEDICARE PART A AND B xxxxxxxxxx Medicare [place], [place] AARP AAR SUPPLEMENT xxxxxxxxxxx Commercial ([place]) [place] [address] Advance Directives Patient has advance care planning documents on file. For more information, please contact:Heriberto [id number] [place] [address]
--- OUTSIDE RECORDS SUMMARY | 2019-01-22 11:42 | XMS REPORT | Continuity of Care Document ---
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 [place] obs/LUTS Family Practice Hypotension, Active Problem 06/30/2017 [place] unspecified Family hypotension type Practice Situational Active Diagnosis 12/07/2018 [place] anxiety Family Practice Obstructive Active Problem 04/28/2017 [place] uropathy [facility] Neuropathy Active Problem 12/07/2018 [facility] Weight loss, Active Problem 12/07/2018 [place] abnormal [facility] Practice Sebaceous cyst Active Diagnosis 02/23/2017 [facility] Urinary tract Active Diagnosis 02/23/2017 [place] infection Family without Practice hematuria, site unspecified Screen for colon Active Diagnosis 02/23/2017 [place] cancer [facility] Encounter for Active Diagnosis 03/05/2018 [place] screening, Family unspecified Practice Pyuria Active Diagnosis 04/22/2017 [facility] Tobacco use Active Problem 12/07/2018 [facility] Chronic kidney Active Problem 10/12/2017 [place] disease, stage Family II Practice History of Active Problem 12/07/2018 [place] colonic polyps Family Practice Moderate single Active Problem 12/07/2018 [place] current episode Family of major Practice depressive disorder Obstructed, Active Problem 12/07/2018 [place] uropathy [facility] Lung nodule seen Active Problem 12/07/2018 [place] on imaging study Family Practice Rib lesion Active Diagnosis 07/08/2017 [facility] Encounter for Active Diagnosis 08/06/2017 [place] immunization [facility] Generalized Active Diagnosis 07/06/2017 [place] abdominal pain Family Practice Weight loss Active Diagnosis 07/06/2017 [facility] Chronic kidney Active Problem 12/07/2018 [place] disease, stage 2 Family Practice Moderate episode Active Diagnosis 12/07/2018 [place] 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 Paresthesia Active Problem 12/07/2018 [place] [facility] Paresthesia of Active Problem 06/28/2018 [place] both feet Family Practice Left adrenal Active Problem 12/07/2018 [place] mass Family Practice Fine tremor Active Problem 12/07/2018 [place] [facility] Slow transit Active Problem 12/07/2018 [place] constipation [facility] Impaired fasting Active Problem 12/07/2018 [place] glucose Family [facility] Cognitive Active Problem 12/07/2018 [place] impairment Family Practice LLQ abdominal Active Problem 12/07/2018 [place] mass [facility] Loss of appetite Active Problem 12/07/2018 [place] [facility] Trigger ring Active Diagnosis 03/05/2018 [place] finger of right Family hand Practice Immunization due Active Diagnosis 06/28/2018 [facility] BMI 23.0-23.9, Active Diagnosis 07/28/2018 [place] adult [facility] Low energy Active Diagnosis 07/28/2018 [facility] Night sweats Active Diagnosis 07/28/2018 [place] [facility] Current moderate Active Diagnosis 07/28/2018 [place] episode of major Family depressive Practice disorder without prior episode BMI 21.0-21.9, Active Diagnosis 08/25/2018 [place] [facility] Bilateral cold Active Problem 12/07/2018 [place] feet [facility] Insomnia due to Active Diagnosis 12/07/2018 [place] other mental Family disorder Practice Rash Active Diagnosis 12/07/2018 [place] [facility] Arthralgia, Active Diagnosis 12/07/2018 [place] unspecified Family joint Practice Final: 07/08/2017 [facility] Generalized abdominal pain Final: Abnormal 07/08/2017 [facility] weight loss Final: 02/14/2017 [facility] Hypertensive chronic kidney disease with stage 1 through stage 4 chronic kidney disease, or unspecified chronic kidney disease Medications Medication Details Route Status Patient Ordering Order Source Instructions Provider Date sertraline 1 tab(s) orally Active 50 mg orally Pozzi 02/07/2 [place] once a day 019 [facility] diazepam 1 tab(s) orally Active 5 mg orally [facility] BID PRN [address] [place] [address] trazodone 1 tab(s) orally Active 100 mg orally Po[facility] Once at night 019 [facility] trazodone 1 tab(s) orally Active 50 mg orally [facility] Once at night [address] [place] [address] clonazepam 1 tab(s) orally Active 0.5 mg orally Po[facility] Twice a day [address] [place] [address] Amitiza 1 cap(s) orally Active 8 mcg orally 2 [facility] times a day [address] [place] [address] escitalopram 1 tab(s) orally Active 10 mg orally Pozzi [facility] once a day 018 [facility] Trintellix 1 tab(s) orally Active 5 mg orally Pozzi [facility] once a day [address] [place] [address] mirtazapine 1 tab(s) orally Active 15 mg orally Pozzi [facility] once a day (at [address] [place] [address]) [facility] Readi-Cat 2 450 mL, Inactive [facility] [...] orally Pozzi [facility] once a day (at [address] [place] [address] [facility]) [facility] clonazepam 1 tab(s) orally Active 0.5 mg orally Pozzi [facility] 2-3 times a [facility] clonazepam 1 tab(s) orally Active 0.5 mg orally Po[facility] 2-3 times a [facility] clonazepam 1 tab(s) orally Active 0.5 mg orally Pozzi [facility] Twice a day [facility] clonazepam 1 tab(s) orally Active 0.5 mg orally Pozzi [facility] Twice a day [facility] clonazepam 1 tab(s) orally Active 0.5 mg orally Po[facility] Twice a day [facility] finasteride 1 tab(s) orally Active 5 mg orally Pozzi [facility] once a day [facility] finasteride 1 tab(s) orally Active 5 mg orally Po[facility] once a day [facility] Zithromax Z-[place] one oral Active 250 mg oral 2 [facility] today, then [facility] one [facility] lisinopril 1 tab(s) orally Active 20 mg orally Pozzi [facility] once a day [facility] Lisinopril TAKE ONE NA Active 20 mg Pozzi [facility] TABLET BY [facility] DAILY [facility] finasteride 1 tab(s) orally Active 5 orally once [facility] a day [facility] Sulfamethoxazol 1 tab(s) orally Active 800 mg-160 mg [facility] e-Trimethoprim orally 2 times [facility] DS a day [facility] Finasteride TAKE ONE NA Active 5 mg [facility] TABLET BY [facility] DAILY [facility] Rapaflo 1 cap(s) orally Active 8 mg orally Pozzi [facility] once a day [facility] Rapaflo 1 cap(s) orally Active 8 mg orally Po[facility] once a day [facility] mirtazapine 1 tab(s) orally Active 45 mg orally [facility] Once at night [facility] mirtazapine not defined NA Active [facility] Zoloft 1 tab(s) orally Active 50 mg orally Pozzi [facility] once a day [facility] mirtazapine 1 tab(s) orally Active 30 mg orally Po[facility] Once at night [facility] Metamucil 4 cap(s) orally Active 400 mg orally Po[facility] Once daily [facility] escitalopram 1 tab(s) orally Active 5 mg orally Pozzi [facility] once a day [facility] escitalopram 1 tab(s) orally Active 10 mg orally Pozzi [facility] once a day [facility] Finasteride TAKE ONE NA Active 5 mg [facility] TABLET [place] [facility]TH DAILY [facility] escitalopram 1/2 tab orally Active 10 mg orally Po[facility] once a day [facility] DULoxetine 1 cap(s) orally Active 30 mg orally [facility] Hydrochloride Once daily [facility] Allergies, Adverse Reactions, Alerts Substance Category Reaction Severity Reaction Status Date Comments Source type Reported N.K.D.A. Adverse Info Not Adverse Active [facility] Reaction Available Reaction 9 [facility] Immunizations Immunization Date Given Site Status Last Comments Source Updated Influenza High 06/20/2018 completed [place] dose (pre-filled) [facility] Influenza High 07/26/2017 completed [place] dose [facility] (medicare-Pre-fil Practice led) Results Order Name Results Value Reference Date Interpretation Comments Source Range Bone Bone 01/04 - [facility] Density DXA Density DXA - [place] [facility] [place] MALE BONE DENSITY ASSESSMENT: 01/04/2019 Read by: Beltran Diaz MD Dictated Date/time: 01/04/19 11:12 Electronically Signed by: Beltran Diaz MD 01/04/19 11:12 FINAL REPORT CLINICAL DATA: M81.0 Age-related osteoporosis without current pathologic fracture. 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 The BMD average for the exam is 0.728 g/cm2. The T-score is -1.50 and the Z-score is -0.10. This matches the World Health Organization's criteria for osteopenia and places the patient at a medium risk for fracture. An additional bone density evaluation was performed 01/04/2019 on the left femur neck using a Hologic unit. The BMD average for the exam is 0.715 g/cm2. The T-score is -1.60 and the Z-score is -0.20. This matches the World Health Organization's criteria for osteopenia and places the patient at a medium risk for fracture. An additional bone density evaluation was performed 01/04/2019 on the right hip using a Hologic unit. The BMD average for the exam is 0.815 g/cm2. The T-score is -1.40 and the Z-score is -0.60. This m atches the World Health Organization's criteria for osteopenia and places the patient at a medium risk for fracture. An additional bone density evaluation was performed 01/04/2019 on the left hip using a Hologic unit. The BMD average for the exam is 0.841 g/cm2. The T- score is -1.30 and the Z-score is -0.40. This ma tches the World Health Organization's criteria for osteopenia and places the patient at a medium risk for fracture. An additional bone density evaluation was performed 01/04/2019 on the AP L1 -L4 region of spine using a Hologic unit. The BMD average for the exam is 1.027 g/cm2. The T-score is -0.60 and the Z-score is 0.50. This matches the World Health Organization's criteria for normal bone density and places the patient within normal limits of fracture risk. IMPRESSION: OSTEOPENIA Patient is at medium risk for fracture. This exam was interpreted at [id number] for AYUSH Shay. 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): Shakila Ham [facility] Outpatient Imaging Brain Brain Brain Pituitary w/wo contrast MRI 12/07/2018 14:12 DOWN FILLER 12/07 - [place] Pituitary Pituitary /2018 - [facility] w/naldo w/wo [facility] contrast contrast MRI MRI HISTORY/INDICATIONS:77 years Male - R89.1 Abnormal level of hormones in specimens from other organs, systems and tissues, R94.7 Abnormal results of other endocrine function studies Read by: Mayco Kennedy MD Dictated Date/time: 12/07/18 17:32 Electronically Signed by: Mayco Kennedy MD 12/07/18 21:21 FINAL REPORT TECHNIQUE: Multiplanar T1 and T2 weighted, DWI, FLAIR, and gradient echo sequences were obtained. Thin section sagittal T1 and coronal T2 and coronal T1 through the sella, postcontrast thin section co adilson and sagittal T1 through the sella, postcontrast axial T1 MR brain with fat impression. CONTRAST: 14 mL Dotarem given IV COMPARISON: None FINDINGS: Diffusion weighted: No acute infarcts or areas of restricted diffusion Brain Parenchyma: --Brain volume: Prominent cortical sulci/mild reduction in volume. --Cortical arnett white juncture: Within normal limits. --White matter: Faint ill-defined increased T2 signal in the periventricular white matter. Several small foci of increased T2 signal in subcortical white matter on the left side. Ventricles: Mildly prominent in size Vascular flow voids: Normal Hemorrhage: Negative Old infarcts: Negative Other intracranial findings: Negative Skull: Negative --Calvarium: Negative --Scalp: Negative --Orbits: Normal --Pituitary sella: On precontrast images the posterior part of the pituitary gland has a distinctly separate appearance and contains a few high T1 signal speckles. The size of the posterior pituitary on precontrast sagittal T1-weighted images, measures 6.7 x 4.7 mm. This compares with a mean normal dimension of 4.8 +/- 1.2 mm x 2.4 +/- 0.7 mm ( Ref. Fede et al, J Neurosurgery, 2014, 120: 357-362). In general, the posterior pituitary is smaller in older patients and more older people have decreased or no high T1 signal intensity. Therefore although the decreased amount of T1 signal is consistent w ith the patient's age, but remains unclear why the posterior pituitary appears mildly enlarged. On the postcontrast series the posterior pituitary is hypointense relative to the anterior pituitary. This suggests that there may be an infiltrating microadenoma that has extended into this posterior pituitary. The most clearly defined focal part of this hypoenhancement enhancement measures 5.1 x 3.1 mm, and this may be a microadenoma.. --Mastoid air cells/middle ear/inner ear: Clear --Paranasal sinuses: Small retention cyst or polyp in the right sphenoid sinus. Mucosal thickening in the right maxillary sinus with a retention cyst or polyp. The rest of the paranasal sinuses are clear. Visualized infracranial: Negative --Nasopharynx: Negative --Parotids: Negative --Internet Specialist space: Negative --C-spine: Negative IMPRESSION: 1. The posterior pituitary appears to be enlarged and is hypointense to the anterior pituitary on the postcontrast series, suggesting that it may have become infiltrated by a microadenoma extending int o the posterior pituitary. See additional comments [id number] Chest 2 Chest 2 Chest 2 views DX 12/07/2018 13:54 DOWN FILLER 12/07 - [facility] views DX views DX /2018 - [place] HISTORY/INDICATIONS:77 years Male - R94.7 Abnormal results of other endocrine function studies, R89.1 Abnormal level of hormones in specimens from other organs, systems and tissues Read by: Mayco Kennedy MD Dictated Date/time: 12/07/18 14:07 Electronically Signed by: Mayco Kennedy MD 12/07/18 14:09 FINAL REPORT COMPARISON: None FINDINGS: Lung Volume: Normal Lungs: Clear Pulmonary vasculature: Normal size Cardiac silhouette: Normal size Mediastinum: Normal size. Visualized skeleton: No obvious fractures Line/tubes/implants: None IMPRESSION: No active disease [id number] Abdomen Abdomen Addendum: 08/31 - [facility] w/wo w/wo /2017 - [place] contrast contrast [place] MRI MRI The magnetic resonance imaging of abdomen with and without pelvis dated was also compared to outside CT dated 07/06/2017 as well as to CT dated 07/29/2018. Read by: Rosalio Strong MD Dictated Date/time: 09/01/18 10:58 Electronically Signed by: Rosalio Strong MD 09/01/18 11:06 FINAL REPORT The left adrenal nodule is stable in size and appearance compared to prior exams dating back to 07/06/2017. The 7 mm right adrenal nodule can also be seen on prior CT of abdomen dated 07/29/2018 and 07/06/2017 and is also unchanged. - - Findings discussed with Dr. Abbott. Read by: Rosalio Strong MD Dictated Date/time: 08/31/18 14:53 Electronically Signed by: Rosalio Strong MD 08/31/18 15:14 FINAL REPORT MRI OF ABDOMEN WITH AND WITHOUT IV CONTRAST, 08/31/2018 HISTORY: Left adrenal lesion detected on outside CT of abdomen and pelvis dated 07/29/2018, available for comparison. TECHNIQUE: Multiplanar pre and post contrast sequences through the upper abdomen were obtained following the intravenous injection of 15 mL of Dotarem. FINDINGS: The pre and postcontrast images through the liver demonstrate no evidence of focal liver mass or bile duct dilatation. Normal size gallbladder containing 3 gallstones. Normal pancreas, spleen, abdominal aorta, and inferior vena cava. Multiple bilateral benign renal cysts noted. No evidence of solid renal mass or hydronephrosis. 2.6 x 1.6 cm benign hyperdense exophytic cyst arises from the lateral cortex of mid pole of left kidney. The right adrenal gland is normal in size. 7 mm nonenhancing hypointense lesion in the right adrenal gland (series 1301, image 61) is most likely a benign adrenal adenoma. Mild symmetrical enlargement of the left adrenal gland with central 2.1 x 1.5 cm left adrenal nodule (series 1301, image 66) which demonstrates diffuse signal dropout on out of phase sequence (series 60 1, image 23) compatible with benign adrenal adenoma. No significant enhancement of the nodule noted on postcontrast images. No dilated bowel loops. No evidence of ascites. The visualized bony structures appear intact. 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 Probable 7 mm benign right adrenal adenoma. Endocrine evaluation may be indicated. Bone scan Bone scan WHOLE BODY BONE IMAGES, 08/31/201808/31 - [facility] - [place] HISTORY: Right 8th rib sclerosis and left adrenal lesion detected on outside CT of abdomen dated 07/29/2018 and 07/06/2018. Read by: Rosalio Strong MD Dictated Date/time: 08/31/18 13:56 Electronically Signed by: Rosalio Strong MD 08/31/18 14:52 FINAL REPORT TECHNIQUE: Anterior and posterior whole body bone images were obtained 3 hours following the intravenous injection of 25.8 mCi of technetium-labelled MDP. FINDINGS: Mild cortical thickening and mild increased radiotracer activity noted in the right 8th rib, etiology and significance unknown, but most likely benign. Differential diagnosis includes healed fracture, P aget's disease, and fibrous dysplasia. No evidence of lytic bone destruction, soft tissue mass, or pathologic fracture. Mild increased radiotracer activity in bilateral shoulders most likely represents degenerative osteoarthritis. Focal increased radiotracer activity in the right 1st toe is most likely related to degener ative change. Focal increased radiotracer activity in the left mandible most likely reflects dental disease. No other focal areas of increased or decreased radiotracer activity detected. IMPRESSION: Mild cortical thickening and mild increased radiotracer activity in right 8th rib, most likely benign etiology, corresponds to right rib sclerosis seen on outside CT. The differential diagnosis includes healed rib fracture, Paget's disease and fibrous dysplasia. No evidence of lytic bone destruction, soft tissue mass, or pathologic fracture to suggest malignancy. LABORATORY eGFR NonAFR 59 07/06 [facility] Amer mL/min/1.73m /2017 2 LABORATORY Results Reported 07/06 (07/06/17 9:52 AM) LABORATORY Creatinine 1.2 mg/dL 0.6 - 1.3 07/06 Vital Signs Vital Sign Value Date Comments Source Height 72 11/28/2018 [facility] Weight 166 11/28/2018 [facility] Temperature Oral (F) 96.6 F 11/28/2018 [facility] Diastolic (mm Hg) 70 11/28/2018 [facility] Systolic (mm Hg) 104 11/28/2018 [facility] Height 72 10/17/2018 [facility] Weight 173 10/17/2018 [facility] Temperature Oral (F) 96.8 F 10/17/2018 [facility] Diastolic (mm Hg) 70 10/17/2018 [facility] Systolic (mm Hg) 108 10/17/2018 [facility] Height 72 08/15/2018 [facility] Weight 162 08/15/2018 [facility] Temperature Oral (F) 96.5 F 08/15/2018 [facility] Diastolic (mm Hg) 72 08/15/2018 [facility] Systolic (mm Hg) 118 08/15/2018 [facility] Height 72 07/21/2018 [facility] Weight 170 07/21/2018 [facility] Temperature Oral (F) 96.7 F 07/21/2018 [facility] Diastolic (mm Hg) 78 07/21/2018 [facility] Systolic (mm Hg) 130 07/21/2018 [facility] Height 72 06/20/2018 [facility] Weight 175 06/20/2018 [facility] Temperature Oral (F) 96.7 F 06/20/2018 [facility] Diastolic (mm Hg) 72 06/20/2018 [facility] Systolic (mm Hg) 118 06/20/2018 [facility] Height 72 05/18/2018 [facility] Weight 172 05/18/2018 [facility] Temperature Oral (F) 96.9 F 05/18/2018 [facility] Diastolic (mm Hg) 86 05/18/2018 [facility] Systolic (mm Hg) 142 05/18/2018 [facility] Height 72 05/02/2018 [facility] [...] Type Number For Provider Date Date Visit [facility] Outpatient [id number] Joel Fortune 02/12 02/12 Active Surgical /2016 [facility] Outpatient [id number] Joel Fortune 02/12 02/13 [facility] Outpatient [id number] Joel Fortune 04/16 Active Surgical [facility] Outpatient [id number] Joel Fortune 04/16 04/17 [facility] /2016 [facility] Outpatient [id number] Joel Fortune 07/06 Active Surgical [facility] Outpatient [id number] Joel Fortune 07/06 07/07 [facility] Surgical [facility] Outpt Diag [id number] [facility] 12/07 12/08 [facility] [place] [facility] [address] [address] Outpt Diag [id number] [facility] 01/04 01/05 [facility] Out[facility] 3 [facility] [place] Outpatient [id number] Samson Bowen 02/[address] [facility] Procedures Procedure Code Date Perfomer Comments Source
--- OUTSIDE RECORDS SUMMARY | 2019-01-22 11:42 | XMS REPORT | Summary of Care ---
:1940 Author Organization [facility] Outpatient Imaging [place] Address [id number] [place] [address]- Encounter [facility] Encntr_alias(FIN) [id number] Date(s): 12/07/18 - 12/07/[address] [facility] Outpatient Imaging [place] [address]- Discharge Disposition: Home or Self Care Attending Physician: Carolina Abbott MD Referring Physician: Carolina Abbott MD Vital Signs No data available for this section Problem List No data available for this section Allergies, Adverse Reactions, Alerts No data available for this section Medications No data available for this section Results No data available for this section Immunizations No data available for this section Procedures No data available for this section Social History No data available for this section Assessment and Plan No data available for this section
--- OUTSIDE RECORDS SUMMARY | 2019-01-22 11:42 | XMS REPORT ---
[...] Medications Results No Known Results Summary Purpose [employer] Submission
--- OUTSIDE RECORDS SUMMARY | 2019-01-22 11:42 | XMS REPORT | Summary of Care ---
:1940 Author Organization [facility] Outpatient Imaging [place] Address [id number] [place] [address]- Encounter [facility] Encntr_alias(FIN) [id number] Date(s): 01/04/19 - 01/04/19 [facility] Outpatient Imaging [place] [address]- Discharge Disposition: Home or Self Care Attending [...]
--- OUTSIDE RECORDS SUMMARY | 2019-01-22 11:43 | XMS REPORT ---
:1940 Author Organization [employer]Hstry Care Team Providers Name Role Phone Joel [...] Medications Results No Known Results Summary Purpose Access Information ManagementinicalHstry Submission
--- OUTSIDE RECORDS SUMMARY | 2019-01-22 11:43 | XMS REPORT ---
:1940 Author Organization [employer]ClinicalWhyd Care Team Providers Name Role Phone Joel [...] Medications Results No Known Results Summary Purpose Sc[employer]ps[employer]ain[employer]Whyd Submission
--- OUTSIDE RECORDS SUMMARY | 2019-01-22 11:43 | XMS REPORT ---
:1940 Author Organization [employer] Care Team Providers Name Role Phone Joel [...] Medications Results No Known Results Summary Purpose [employer] Submission
--- OUTSIDE RECORDS SUMMARY | 2019-01-22 11:43 | XMS REPORT ---
[...] Medications Results No Known Results Summary Purpose HashtagoinicaleveryArt Submission
--- OUTSIDE RECORDS SUMMARY | 2019-01-22 11:43 | XMS REPORT ---
[...] Medications Results No Known Results Summary Purpose [facility] Submission
--- OUTSIDE RECORDS SUMMARY | 2019-01-22 11:43 | XMS REPORT ---
[...] End Date Status Dosage Date clonazepam ND 54784777063 0.5 mg orally 2-3 April 16, Active 1 tab(s) times a day 2016 finasteride ND 64236244942 5 mg orally once Jul 18, Active 1 tab(s) a day 2016 Rapaflo ND 06543576193 8 mg orally once Active 1 cap(s) a day Vital Signs Date/Time: May 13, 2017 Height 72 in Weight 177.8 lbs Temperature 97.3 F BMI 24.11 Index Blood Pressure Diastolic 78 mm Hg Blood Pressure Systolic 138 mm Hg Results No Known Results Summary Purpose eClinicalWorks Submission
--- OUTSIDE RECORDS SUMMARY | 2019-01-22 11:43 | XMS REPORT ---
:1940 Author Organization [employer] Care Team Providers Name Role Phone BoydJoel [...] Medications Results No Known Results Summary Purpose [employer] Submission
--- OUTSIDE RECORDS SUMMARY | 2019-01-22 11:43 | XMS REPORT ---
[...] Date End Date Status Dosage lisinopril NDC 69728 20 mg orally once Jun 06, Active 1 tab(s) a day 2014 Lisinopril NDC 66166 20 mg Active TAKE ONE TABLET BY MOUTH DAILY finasteride NDC 45580 5 orally once a Active 1 tab(s) day Sulfamethoxazole NDC 7978 800 mg-160 mg Active 1 tab(s) -Trimethoprim DS orally 2 times a day finasteride NDC 49452 5 mg orally once Jul 18, Active 1 tab(s) a day 2015 Zithromax [place] NDC 3343 250 mg oral 2 Jul 02, Active one today, then one 2014 QD Finasteride NDC 76224 5 mg Active TAKE ONE TABLET BY MOUTH DAILY Vital Signs Date/Time: February 08, 2017 Height 72 in Weight 198 lbs Temperature 96.4 F BMI 26.85 Index Blood Pressure Diastolic 64 mm Hg Blood Pressure Systolic 100 mm Hg Results No Known Results Summary Purpose eClinicalWorks Submission
--- OUTSIDE RECORDS SUMMARY | 2019-01-22 11:43 | XMS REPORT ---
[...] End Date Status Dosage Date finasteride NDC 52628 5 mg orally once Jul 18, Active 1 tab(s) a day 2015 Rapaflo NDC 140913 8 mg orally once Active 1 cap(s) a day Sulfamethoxazole NDC 7978 800 mg-160 mg Active 1 tab(s) -Trimethoprim DS orally 2 times a day lisinopril NDC 59063 20 mg orally Jun 06, Inactive 1 tab(s) once a day 2014 Vital Signs Date/Time: April 15, 2017 Height 72 in Weight 180.6 lbs Temperature 97.7 F BMI 24.49 Index Blood Pressure Diastolic 66 mm Hg Blood Pressure Systolic 104 mm Hg Results Name Result Date Reference Range Unit Abnormality Flag Q-TSH, 3RD GENERATION ----TSH 0.75 [id number] 0.40-4.50 mIU/L N Q-CBC (INCLUDES DIFF/PLT) ----ABSOLUTE EOSINOPHILS 21 25099921 15-500 cells/uL N ----MCV 91.3 59411091 80.0-100.0 fL N ----HEMATOCRIT 39.4 25778985 38.5-50.0 % N ----ABSOLUTE MONOCYTES 449 54533156 200-950 cells/uL N ----MCHC 33.0 99781004 32.0-36.0 g/dL N ----ABSOLUTE LYMPHOCYTES 1401 40581321 850-3900 cells/uL N ----MCH 30.1 88519213 27.0-33.0 pg N ----ABSOLUTE NEUTROPHILS 5003 27190723 0459-8480 cells/uL N ----MONOCYTES 6.5 59816169 % N ----WHITE BLOOD CELL 6.9 83915839 3.8-10.8 Thousand/uL N COUNT ----LYMPHOCYTES 20.3 37976296 % N ----NEUTROPHILS 72.5 51392238 % N ----HEMOGLOBIN 13.0 13508202 13.2-17.1 g/dL L ----ABSOLUTE BASOPHILS 28 60177070 0-200 cells/uL N ----RED BLOOD CELL COUNT 4.32 30871600 4.20-5.80 Million/uL N ----BASOPHILS 0.4 48548376 % N ----MPV 9.9 36975747 7.5-12.5 fL N ----EOSINOPHILS 0.3 24636442 % N ----RDW 14.3 74715985 11.0-15.0 % N ----PLATELET COUNT 236 12267496 140-400 Thousand/uL N Q-CMP W/EGFR ----ALBUMIN/GLOBULIN 2.1 89601346 1.0-2.5 (calc) N RATIO ----GLOBULIN 2.1 06501141 1.9-3.7 g/dL (calc) N ----ALKALINE PHOSPHATASE 54 81144869 40-115 U/L N ----BILIRUBIN, TOTAL 0.7 11113924 0.2-1.2 mg/dL N ----CHLORIDE 102 20170415 98-110 mmol/L N ----ALT 8 20170415 9-46 U/L L ----POTASSIUM 4.6 93991622 3.5-5.3 mmol/L N ----AST 16 20170415 10-35 U/L N ----SODIUM 136 30066688 135-146 mmol/L N ----BUN/CREATININE RATIO 18 20170415 6-22 (calc) N ----eGFR 65 95857978 > OR=60 mL/min/1.73m N [facility] 2 ----CALCIUM 9.5 69580849 8.6-10.3 mg/dL N ----CARBON DIOXIDE 26 20170415 20-31 mmol/L N ----ALBUMIN 4.5 13296832 3.6-5.1 g/dL N ----PROTEIN, TOTAL 6.6 18367427 6.1-8.1 g/dL N ----GLUCOSE 108 00855633 65-99 mg/dL H ----UREA NITROGEN (BUN) 22 20170415 7-25 mg/dL N ----CREATININE 1.25 92676853 0.70-1.18 mg/dL H ----eGFR NON-AFR. 56 06532442 > OR=60 mL/min/1.73m L [facility] 2 Q-SED RATE BY MODIFIED [place] ----SED RATE BY MODIFIED 2 46481866 < OR=20 mm/h N [place] Q-VITAMIN B12 ----VITAMIN B12 318 62241361 200-1100 pg/mL N Q-CULTURE, URINE ROUTINE Q-PROTEIN ELECTROPHORESIS SERUM ----GAMMA GLOBULINS 0.8 25293502 0.8-1.7 g/dL N ----RTTGO-5-PBIDYXHUW 0.6 31438645 0.5-0.9 g/dL N ----ACBLE-9-HTONGBOBL 0.3 69670818 0.2-0.3 g/dL N ----ALBUMIN 4.3 17159723 3.8-4.8 g/dL N ----PROTEIN, TOTAL 6.7 79693927 6.1-8.1 g/dL N X RAY : CXR Summary Purpose eClinicalWorks Submission
--- OUTSIDE RECORDS SUMMARY | 2019-01-22 11:43 | XMS REPORT ---
[...] Date End Date Status Dosage finasteride NDC 93003 5 mg orally once a Jul 18, Active 1 tab(s) day 2016 Rapaflo NDC 470201 8 mg orally once a Active 1 cap(s) day clonazepam NDC 66884 0.5 mg orally 2-3 April 16, Active 1 tab(s) times a day 2016 Vital Signs Date/Time: April 22, 2017 Height 72 in Weight 176.2 lbs Temperature 97.6 F BMI 23.89 Index Blood Pressure Diastolic 78 mm Hg Blood Pressure Systolic 126 mm Hg Results No Known Results Summary Purpose eClinicalWorks Submission
--- OUTSIDE RECORDS SUMMARY | 2019-01-22 11:44 | XMS REPORT ---
[...] Start End Date Status Dosage Date clonazepam [facility] 52453449414 0.5 mg orally April 16, Active 1 tab(s) Twice a day prn 2016 finasteride ND 48726066439 5 mg orally once Jul 18, Active [...]
--- OUTSIDE RECORDS SUMMARY | 2019-01-22 11:44 | XMS REPORT ---
[...] End Date Status Dosage Date clonazepam ND 76889325110 0.5 mg orally 2-3 April 16, Active 1 tab(s) times a day prn 2017 mirtazapine ND 74477047657 15 mg orally once Jun 30, Active 1 tab(s) a day (at 2017 bedtime) finasteride ND 55741596654 5 mg orally once Jul 18, Active 1 tab(s) a day 2015 Vital Signs Date/Time: Jul 26, 2017 Height 72 in Weight 179.2 lbs Temperature 97.4 F BMI 24.30 Index Blood Pressure Diastolic 90 mm Hg Blood Pressure Systolic 148 mm Hg Results Name Result Date Reference Range Unit Abnormality Flag Q-CMP W/EGFR ----ALBUMIN/GLOBULIN 1.9 [id number] 1.0-2.5 (calc) N RATIO ----GLOBULIN 2.2 20170726 1.9-3.7 g/dL (calc) N ----ALKALINE 63 05622051 40-115 U/L N PHOSPHATASE ----BILIRUBIN, TOTAL 0.6 27571727 0.2-1.2 mg/dL N ----CHLORIDE 102 25462114 98-110 mmol/L N ----ALT 22 54182263 9-46 U/L N ----POTASSIUM 4.3 39461261 3.5-5.3 mmol/L N ----AST 23 74991371 10-35 U/L N ----SODIUM 141 10160763 135-146 mmol/L N ----BUN/CREATININE 20 62924330 6-22 (calc) N RATIO ----eGFR 62 67218348 > OR=60 mL/min/1.73m2 N [place]VIAN ----CALCIUM 9.3 96436120 8.6-10.3 mg/dL N ----CARBON DIOXIDE 28 01681413 20-31 mmol/L N ----ALBUMIN 4.2 72542044 3.6-5.1 g/dL N ----PROTEIN, TOTAL 6.4 87493944 6.1-8.1 g/dL N ----GLUCOSE 111 59437139 65-99 mg/dL H ----UREA NITROGEN 26 89749125 7-25 mg/dL H (BUN) ----CREATININE 1.31 51417952 0.70-1.18 mg/dL H ----eGFR NON-AFR. 53 78255128 > OR=60 mL/min/1.73m2 L [place]VI[place] Immunizations Vaccine Administration Date Influenza High dose (medicare-Pre-filled) Jul 26, 2017 Summary Purpose eClinicalWorks Submission
--- OUTSIDE RECORDS SUMMARY | 2019-01-22 11:44 | XMS REPORT ---
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 Active Problem Slow transit constipation K59.01 Active Problem Impaired fasting glucose R73.01 Active Problem Cognitive impairment R41.89 Active Problem LLQ abdominal mass R19.04 Active Problem Loss of appetite R63.0 Active Problem Weight loss, abnormal R63.4 Active Problem Situational anxiety F41.8 Active Problem 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
--- OUTSIDE RECORDS SUMMARY | 2019-01-22 11:44 | XMS REPORT ---
[...] Medications Results No Known Results Summary Purpose eClinicalQuick Key Submission
--- OUTSIDE RECORDS SUMMARY | 2019-01-22 11:44 | XMS REPORT ---
[...] End Date Status Dosage Date mirtazapine ND 86738382628 15 mg orally once Jun 30, Active 1 tab(s) a day (at 2017 bedtime) clonazepam NDC 86390990283 0.5 mg orally 2-3 April 16, Active 1 tab(s) times a day 2016 finasteride ND 85714218844 5 mg orally once Jul 18, Active 1 tab(s) a day 2015 Vital Signs Date/Time: Jun 30, 2017 Height 72 in Weight 173.6 lbs Temperature 97.3 F BMI 23.54 Index Blood Pressure Diastolic 82 mm Hg Blood Pressure Systolic 120 mm Hg Results Name Result Date Reference Range Unit Abnormality Flag Q-CMP W/EGFR ----ALBUMIN/GLOBULIN 1.9 [id number] 1.0-2.5 (calc) N RATIO ----GLOBULIN 2.4 12218885 1.9-3.7 g/dL (calc) N ----ALKALINE 59 02994648 40-115 U/L N PHOSPHATASE ----BILIRUBIN, TOTAL 0.8 57248961 0.2-1.2 mg/dL N ----CHLORIDE 104 19367098 98-110 mmol/L N ----ALT 13 88484468 9-46 U/L N ----POTASSIUM 4.6 17606969 3.5-5.3 mmol/L N ----AST 19 54176829 10-35 U/L N ----SODIUM 138 50392325 135-146 mmol/L N ----BUN/CREATININE 25 52109916 6-22 (calc) H RATIO ----eGFR 71 45194726 > OR=60 mL/min/1.73m2 N BR[place] ----CALCIUM 9.6 45004055 8.6-10.3 mg/dL N ----CARBON DIOXIDE 27 43001009 20-31 mmol/L N ----ALBUMIN 4.6 20545793 3.6-5.1 g/dL N ----PROTEIN, TOTAL 7.0 16568352 6.1-8.1 g/dL N ----GLUCOSE 111 16573194 65-99 mg/dL H ----UREA NITROGEN 29 36543152 7-25 mg/dL H (BUN) ----CREATININE 1.17 76790458 0.70-1.18 mg/dL N ----eGFR NON-AFR. 61 65338611 > OR=60 mL/min/1.73m2 N BRUNEIAN Summary Purpose eClinicalWorks Submission
--- OUTSIDE RECORDS SUMMARY | 2019-01-22 11:44 | XMS REPORT ---
[...] Status Dosage clonazepam [facility] 56590112486 0.5 mg orally April 16, Active 1 tab(s) Twice a day prn 2017 Results No Known Results Summary Purpose eClinicalWorks Submission
--- OUTSIDE RECORDS SUMMARY | 2019-01-22 11:45 | XMS REPORT ---
[...] End Status Dosage System Date Date mirtazapine [facility] 27231698977 45 mg orally Inactive 1 tab(s) Once at night escitalopram [facility] 99428895654 10 mg orally Jul 25, Active 1 tab(s) once a day 2018 Results No Known Results Summary Purpose eClinicalWorks Submission
--- OUTSIDE RECORDS SUMMARY | 2019-01-22 11:45 | XMS REPORT ---
[...] End Date Status Dosage Date clonazepam NDC 03519789874 0.5 mg orally April 16, Active 1 tab(s) Twice a day prn 2017 mirtazapine NDC 17171420496 15 mg orally once February 21, Active 1 tab(s) a day (at 2018 bedtime) finasteride NDC 18224491558 5 mg orally once Jul 18, Active 1 tab(s) a day 2015 Vital Signs Date/Time: February 21, 2018 Height 72 in Weight 177 lbs Temperature 97.2 F BMI 24.00 Index Blood Pressure Diastolic 72 mm Hg Blood Pressure Systolic 120 mm Hg Results Name Result Date Reference Range Unit Abnormality Flag Q-CBC (INCLUDES DIFF/PLT) ----ABSOLUTE 4392 20180221 4841-8270 cells/uL N NEUTROPHILS ----MPV 10.8 75380865 7.5-12.5 fL N ----EOSINOPHILS 0.2 91187533 % N ----HEMOGLOBIN 14.2 53620309 13.2-17.1 g/dL N ----MONOCYTES 5.1 20180221 % N ----HEMATOCRIT 42.0 42223358 38.5-50.0 % N ----LYMPHOCYTES 22.2 20180221 % N ----MCV 87.7 20377317 80.0-100.0 fL N ----NEUTROPHILS 72 20180221 % N ----MCH 29.6 76346796 27.0-33.0 pg N ----ABSOLUTE 31 20180221 0-200 cells/uL N BASOPHILS ----MCHC 33.8 87270868 32.0-36.0 g/dL N ----BASOPHILS 0.5 78598124 % N ----ABSOLUTE 12 20180221 15-500 cells/uL L EOSINOPHILS ----RDW 12.9 04601261 11.0-15.0 % N ----WHITE BLOOD 6.1 20180221 [...] NON-AFR. 63 20180221 > OR=60 mL/min/1.7 N [place] 3m2 ----BILIRUBIN, 0.5 20180221 0.2-1.2 mg/dL N TOTAL ----eGFR 73 20180221 > OR=60 mL/min/1.7 N [place] 3m2 ----UREA NITROGEN 22 20180221 7-25 mg/dL [...]
--- OUTSIDE RECORDS SUMMARY | 2019-01-22 11:45 | XMS REPORT ---
[...] Medications Results No Known Results Summary Purpose [employer]ClinicalBlack & [employer]atch Submission
--- OUTSIDE RECORDS SUMMARY | 2019-01-22 11:45 | XMS REPORT ---
[...] mirtazapine NDC 0 Active not defined clonazepam [facility] 13091058273 0.5 mg orally April 16, Active 1 tab(s) Twice a day prn 2016 finasteride ND 52503958243 5 mg orally once Jul 18, Active 1 tab(s) a day 2015 Vital Signs Date/Time: May 02, 2018 Height 72 in Weight 175 lbs Temperature 96.3 F BMI 23.73 Index Blood Pressure Diastolic 80 mm Hg Blood Pressure Systolic 124 mm Hg Results No Known Results Summary Purpose eClinicalWorks Submission
--- OUTSIDE RECORDS SUMMARY | 2019-01-22 11:45 | XMS REPORT ---
[...] Medications Results No Known Results Summary Purpose eClinicalThe Pie Piper Submission
--- OUTSIDE RECORDS SUMMARY | 2019-01-22 11:45 | XMS REPORT ---
[...] End Date Status Dosage Date finasteride ND 35041446103 5 mg orally once Jul 18, Active 1 tab(s) a day 2015 mirtazapine ND 18977217512 45 mg orally Once Active 1 tab(s) at night clonazepam ND 36410727593 0.5 mg orally April 16, Active 1 [...]
--- OUTSIDE RECORDS SUMMARY | 2019-01-22 11:45 | XMS REPORT ---
[...] End Date Status Dosage System Date mirtazapine [facility] 67855422949 15 mg orally February 21, Inactive 1 tab(s) once a day (at 2018 bedtime) Results No Known Results Summary Purpose eClinicalWorks Submission
--- OUTSIDE RECORDS SUMMARY | 2019-01-22 11:45 | XMS REPORT ---
[...] Medications Results No Known Results Summary Purpose eClinicalBioRelix Submission
--- OUTSIDE RECORDS SUMMARY | 2019-01-22 11:45 | XMS REPORT ---
:1940 Author Organization eClinicalWorks Care Team Providers Name Role Phone Jeol Fortune Provider Role Unavailable Allergies No Known [...] Start Date End Date Status Dosage clonazepam [facility] 87725438465 0.5 mg orally April 16, Active 1 tab(s) Twice a day prn 2017 Results No Known Results Summary Purpose eClinicalWorks Submission
--- OUTSIDE RECORDS SUMMARY | 2019-01-22 11:45 | XMS REPORT ---
[...] Medications Results No Known Results Summary Purpose [employer] Submission
--- OUTSIDE RECORDS SUMMARY | 2019-01-22 11:45 | XMS REPORT ---
[...] End Date Status Dosage System Date Zoloft [facility] 97076598523 50 mg orally Inactive 1 tab(s) once a day clonazepam [facility] 16852152374 0.5 mg orally April 16, Active 1 tab(s) Twice a day prn 2016 mirtazapine [facility] 09723838692 30 mg orally Active 1 tab(s) Once at night finasteride [facility] 82728906676 5 mg orally once Jul 18, Active 1 tab(s) a day 2015 Vital Signs Date/Time: May 18, 2018 Height 72 in Weight 172 lbs Temperature 96.9 F BMI 23.32 Index Blood Pressure Diastolic 86 mm Hg Blood Pressure Systolic 142 mm Hg Results No Known Results Summary Purpose eClinicalWorks Submission
--- OUTSIDE RECORDS SUMMARY | 2019-01-22 11:46 | XMS REPORT ---
[...] Start Date End Date Status Dosage clonazepam [facility] 54769932971 0.5 mg orally April 16, Active 1 tab(s) Twice a day prn 2017 Results No Known Results Summary Purpose eClinicalWorks Submission
--- OUTSIDE RECORDS SUMMARY | 2019-01-22 11:46 | XMS REPORT ---
[...] loc w urin obs/LUTS N40.1 Active Assessment Situational anxiety F41.8 Active Problem Situational anxiety F41.8 Active Problem Obstructed, uropathy N13.9 Active Problem Neuropathy G62.9 Active Problem Tobacco use Z72.0 Active Problem Weight loss, abnormal R63.4 Active Problem Hypertensive chronic kidney disease I12.9 Active with stage 1 through stage 4 chronic kidney disease, or unspecified chronic kidney disease Medications Medication Code System Code Instructions Start Date End Date Status Dosage clonazepam [facility] 26298157979 0.5 mg orally April 16, Active 1 tab(s) Twice a day prn 2017 Results No Known Results Summary Purpose eClinicalWorks Submission
--- OUTSIDE RECORDS SUMMARY | 2019-01-22 11:46 | XMS REPORT ---
[...] End Date Status Dosage Date finasteride NDC 19167283196 5 mg orally once Jul 18, Active 1 tab(s) a day 2015 clonazepam NDC 80534686427 0.5 mg orally April 16, Active 1 tab(s) Twice a day prn 2016 Trintellix NDC 30481610138 5 mg orally once Jul 21, Active 1 tab(s) a day 2017 mirtazapine [facility] 98405132508 45 mg orally Once Active 1 tab(s) at night Vital Signs Date/Time: Jul 21, 2018 Height 72 in Weight 170 lbs Temperature 96.7 F BMI 23.05 Index Blood Pressure Diastolic 78 mm Hg Blood Pressure Systolic 130 mm Hg Results No Known Results Summary Purpose eClinicalWorks Submission
--- OUTSIDE RECORDS SUMMARY | 2019-01-22 11:46 | XMS REPORT ---
[...] Instructions Start Date End Date Status Dosage [facility] 03438308662 8 mcg orally 2 Aug 09, Active 1 cap(s) times a day 2018 Results No Known Results Summary Purpose eClinicalWorks Submission
--- OUTSIDE RECORDS SUMMARY | 2019-01-22 11:47 | XMS REPORT ---
[...] Medications Results No Known Results Summary Purpose eClinicalSociogramics Submission
--- OUTSIDE RECORDS SUMMARY | 2019-01-22 11:47 | XMS REPORT ---
[...] Medications Results No Known Results Summary Purpose eClinicalLunagames Submission
--- OUTSIDE RECORDS SUMMARY | 2019-01-22 11:47 | XMS REPORT ---
:1940 Author Organization eClinicalWorks Care Team Providers Name Role Phone JaxonashleyJoel Provider Role Unavailable Allergies, Adverse Reactions, Alerts Substance Reaction Event Type N.K.D.A. 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 Problem 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 Active Problem 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 Active Assessment Weight loss, abnormal R63.4 Active Problem Slow transit constipation K59.01 Active Assessment Loss of appetite R63.0 Active Problem Impaired [...] Active Problem Obstructed, uropathy N13.9 Active Problem Tobacco use Z72.0 Active Medications Medication Code System Code Instructions Start End Date Status Dosage Date escitalopram ND 08905232159 10 mg orally Jul 25, Active 1 tab(s) once a day 2017 clonazepam ND 55564398383 0.5 mg orally April 16, Active 1 tab(s) Twice a day prn 2017 Trintellix ND 58065639202 5 mg orally once Oct 18, Active 1 tab(s) a day 2017 finasteride [facility] 46294036042 5 mg orally once Jul 18, Active 1 tab(s) a day 2015 Amitiza [facility] 63025901011 8 mcg orally 2 Aug 09, Active 1 cap(s) times a day 2017 Vital Signs Date/Time: Aug 15, 2018 Height 72 in Weight 162 lbs Temperature 96.5 F BMI 21.97 Index Blood Pressure Diastolic 72 mm Hg Blood Pressure Systolic 118 mm Hg Results Name Result Date Reference Range Unit Abnormality Flag Q-METANEPHRINES, FRACT. Frozen LC/MS/MS, RANDOM URINE ----METANEPHRINE 118 [id number] 21-153 mcg/g creat ----NORMETANEPHRINE 133 99598405 108-524 mcg/g creat ----METANEPHRINES, TOTAL 251 20180815 149-603 mcg/g creat ----CREATININE, RANDOM 76 96035959 20-320 mg/dL URINE Summary Purpose eClinicalWorks Submission
--- OUTSIDE RECORDS SUMMARY | 2019-01-22 11:47 | XMS REPORT ---
[...] Active Problem 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 Active Assessment Situational anxiety F41.8 Active Problem Slow transit constipation K59.01 Active [...] of F32.1 Active major depressive disorder Medications Medication Code System Code Instructions Start Date End Date Status Dosage clonazepam [facility] 56999249147 0.5 mg orally April 16, Active 1 tab(s) Twice a day prn 2017 Results No Known Results Summary Purpose [employer] Submission
--- OUTSIDE RECORDS SUMMARY | 2019-01-22 11:47 | XMS REPORT ---
[...] Start Date End Date Status Dosage clonazepam [facility] 29325791952 0.5 mg orally April 16, Active 1 tab(s) Twice a day prn 2017 Results No Known Results Summary Purpose eClinicalWorks Submission
--- OUTSIDE RECORDS SUMMARY | 2019-01-22 11:47 | XMS REPORT ---
:1940 Author Organization eClinicalWorks Care Team Providers Name Role Phone JaxonashleyJoel Provider Role Unavailable Allergies, Adverse Reactions, Alerts Substance Reaction Event Type N.K.D.A. 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 Problem 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 Problem Cognitive impairment R41.89 Active Problem LLQ abdominal mass R19.04 Active Problem Bilateral cold feet R20.9 Active Problem 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 Active Problem Neuropathy G62.9 Active Problem 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 Problem 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 Problem Loss of appetite R63.0 Active Problem Impaired fasting glucose R73.01 Active Problem 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 Active Problem Slow transit constipation K59.01 Active Problem Obstructed, uropathy N13.9 Active Problem Tobacco use Z72.0 Active Problem Weight loss, abnormal R63.4 Active Problem Situational anxiety F41.8 Active Problem 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 Problem Lung nodule seen on imaging study R91.1 Active Problem Hypertensive chronic kidney disease I12.9 Active with stage 1 through stage 4 chronic kidney disease, or unspecified chronic kidney disease Problem History of colonic polyps Z86.010 Active Medications Medication Code System Code Instructions Start End Date Status Dosage Date sertraline NDC 35549349356 50 mg orally Nov 10, Active 1 tab(s) once a day 2019 Metamucil NDC 87279903491 400 mg orally Active 4 cap(s) Once daily trazodone [facility] 61039481107 100 mg orally Oct 17, Active 1 tab(s) Once at night [address] [facility] 76042499702 5 mg orally BID Nov 10, Active 1 tab(s) PRN [address] [facility] 47223741506 5 mg orally once Active 1 tab(s) a day finasteride [facility] 04058105242 5 mg orally once Jul 18, Active 1 tab(s) a day 2015 Vital Signs Date/Time: Nov 28, 2018 Height 72 in Weight 166 lbs Temperature 96.6 F BMI 22.51 Index Blood Pressure Diastolic 70 mm Hg Blood Pressure Systolic 104 mm Hg Results Name Result Date Reference Range Unit Abnormality Flag Q-LYME DISEASE ANTIBODIES IGG,IGM [place] Summary Purpose eClinicalWorks Submission
--- OUTSIDE RECORDS SUMMARY | 2019-01-22 11:47 | XMS REPORT ---
[...] Medications Results No Known Results Summary Purpose eClinicalLet's Jock Submission
--- OUTSIDE RECORDS SUMMARY | 2019-01-22 11:47 | XMS REPORT ---
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 Problem Cognitive impairment R41.89 Active Problem LLQ abdominal mass R19.04 Active Problem Bilateral cold feet R20.9 Active Problem Neuropathy G62.9 Active Problem 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 Active Problem BPH loc w urin obs/LUTS [...] (mild) Assessment Situational anxiety F41.8 Active Problem History of colonic polyps Z86.010 Active Problem Paresthesia R20.2 Active Medications Medication Code System Code Instructions Start Date End Date Status Dosage clonazepam [facility] 61830303779 0.5 mg orally Oct 05, Active 1 tab(s) Twice a day prn 2019 Results No Known Results Summary Purpose DiscretixinicalSurveypal Submission
--- OUTSIDE RECORDS SUMMARY | 2019-01-22 11:48 | XMS REPORT ---
[...] Medications Results No Known Results Summary Purpose eClinicalCelotor Submission
--- OUTSIDE RECORDS SUMMARY | 2019-01-22 11:48 | XMS REPORT ---
[...] Medications Results No Known Results Summary Purpose eClinicalThat{img} Submission
--- OUTSIDE RECORDS SUMMARY | 2019-01-22 11:48 | XMS REPORT ---
[...] Dosage clonazepam [facility] 25661779556 0.5 mg orally Oct 05, Active 1 tab(s) Twice a day prn 2019 Results No Known Results Summary Purpose eClinicalWorks Submission
--- OUTSIDE RECORDS SUMMARY | 2019-01-22 11:48 | XMS REPORT ---
[...] Medications Results No Known Results Summary Purpose eClinicalCoin Submission
--- OUTSIDE RECORDS SUMMARY | 2019-01-22 11:48 | XMS REPORT ---
[...] Date End Date Status Dosage clonazepam [facility] 62168872210 0.5 mg orally April 16, Active 1 tab(s) Twice a day prn 2017 Results No Known Results Summary Purpose eClinicalWorks Submission
--- OUTSIDE RECORDS SUMMARY | 2019-01-22 11:48 | XMS REPORT ---
[...] Medications Results No Known Results Summary Purpose [email or web address] Submission
--- OUTSIDE RECORDS SUMMARY | 2019-01-22 11:48 | XMS REPORT ---
[...] Start End Date Status Dosage Date escitalopram [facility] 27122534789 10 mg orally Active 1 tab(s) once a day Results No Known Results Summary Purpose eClinicalWorks Submission
--- OUTSIDE RECORDS SUMMARY | 2019-01-22 11:48 | XMS REPORT ---
:1940 Author Organization eClinicalWorks Care Team Providers Name Role Phone JaxonashleyJoel Provider Role Unavailable Allergies, Adverse Reactions, Alerts Substance Reaction Event Type N.K.D.A. 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 Problem Chronic kidney disease, stage 2 N18.2 Active (mild) Assessment Situational anxiety F41.8 Active Problem Paresthesia R20.2 Active Assessment 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 Problem Moderate episode of recurrent [...] colonic polyps Z86.010 Active Medications Medication Code Code Instructions Start End Status Dosage System Date Date Finasteride [facility] 58455175310 5 mg Active TAKE ONE TABLET BY MOUTH DAILY finasteride [place] 58400889966 5 mg orally Oct 15, Active 1 tab(s) once a day 2015 [place] 57604123861 8 mcg orally 2 Aug 09, Active 1 cap(s) times a day 2017 escitalopram [place] 87588660067 10 mg orally Inactive 1/2 tab once a day DULoxetine [facility] 97786750916 30 mg orally Active 1 cap(s) Hydrochloride Once daily Metamucil [facility] 18706036372 400 mg orally 4 Active 5 cap(s) times a day trazodone [facility] 00532582569 50 mg orally Oct 17, Active 1 tab(s) Once at night 2018 clonazepam [facility] 88116799869 0.5 mg orally Oct 05, Active 1 tab(s) Twice a day prn 2019 Vital Signs Date/Time: Oct 17, 2018 Height 72 in Weight 173 lbs Temperature 96.8 F BMI 23.46 Index Blood Pressure Diastolic 70 mm Hg Blood Pressure Systolic 108 mm Hg Results No Known Results Summary Purpose eClinicalWorks Submission
--- OUTSIDE RECORDS SUMMARY | 2019-01-22 11:49 | XMS REPORT ---
[...] disease, stage 2 N18.2 Active (mild) Problem History of colonic polyps Z86.010 Active Problem Paresthesia R20.2 Active Medications Medication Code Code Instructions Start End Status Dosage System Date Date DULoxetine [facility] 05030585525 30 mg orally Inactive 1 cap(s) Hydrochloride Once daily Results No Known Results Summary Purpose eClinicalWorks Submission
[2019-01-22 13:08] LABS: Absolute Lymphocytes (CBC) 0.9 K/uL (0.7-4.9); Absolute Monocytes 0.4 K/uL (0.1-1.3); Absolute Neutrophil 3.3 K/uL (1.8-8.0); Basophils % 0.8 % (0-1.3); Eosinophils % 0.6 % (0-4.4); Hematocrit 38.7 % (39.6-49.0); Lymphocytes % 19.1 % (15.3-44.8); MPV 9.3 fL (7.6-11.3); RBC Red Blood Cell Count 4.38 M/uL (4.33-5.43)
[2019-01-22 13:10] LABS: Protime INR 1.04
[2019-01-22 13:29] LABS: ALT/SGPT 22 U/L (12-78); AST/SGOT 23 U/L (15-37); Albumin 3.8 g/dL (3.4-5.0); Alkaline Phosphatase 71 U/L (45-117); BUN Blood Urea Nitrogen 30 mg/dL (7-18); Bicarbonate 27 mmol/L (21-32); Bilirubin Direct 0.2 mg/dL (0-0.2); Bilirubin Total 0.6 mg/dL (0.2-1.0); Glucose Level 146 mg/dL (74-106); Potassium 3.7 mmol/L (3.5-5.1); Protein, Total 6.9 g/dL (6.4-8.2); Sodium Level 142 mmol/L (136-145)
[2019-01-22] MEDS ORDERED: NA CHLORIDE 0.9% 500 ML ONE (14:28)
[2019-01-22 14:57] LABS: Urine Blood TRACE (NEG); Urine Glucose NEGATIVE (NEG); Urine Protein NEGATIVE (NEG)
[2019-01-22 15:03] LABS: Barbiturates NEGATIVE (NEGATIVE); Benzodiazepines POSITIVE (NEGATIVE); Cocaine NEGATIVE (NEGATIVE); METHAMPHETAM NEGATIVE (NEGATIVE); Methadone NEGATIVE (NEGATIVE); Opiates NEGATIVE (NEGATIVE); Phencyclidine NEGATIVE (NEGATIVE); THC Cannibis NEGATIVE (NEGATIVE)
--- NOTE | 2019-01-22 21:24 | EDPHYS ---
Physician Documentation [facility] Name: Anil Dasilva Age: 78 yrs Sex: Male : 1940 Arrival Date: 01/22/2019 Time: 11:43 Bed 14 Private MD: ED Physician Yoel Lewis HPI: 01/22 12:14 This 78 yrs old Male presents to ER via Unassigned with complaints of jmm Depression. 12:14 The patient presents to the emergency department with depression, family, suicide jmm ideation, but the patient has no formulated plan. Onset: The symptoms/episode began/occurred gradually. Past psychiatric history: Psychiatric medications include:. This is a 78 year old male with a history of depression that presents to the ED with complaints of worsening depression over the past few weeks. Patient states having family issues as one of the causes. Patient is currently taking escitalopram, mirtazepine for depression and sees a psychiatrist regularly. Patient told his today he wanted to . then called EMS. . Historical: - Allergies: 11:35 No Known Allergies; rb1 - Home Meds: 11:35 temazepam 30 mg Oral cap 1 cap once daily [Active]; mirtazapine 15 mg Oral tab 1 tab rb1 once daily [Active]; finasteride 5 mg oral tab 1 tab once daily [Active]; escitalopram oxalate 5 mg oral tab 1 tab once daily [Active]; diazepam 5 mg Oral tab 1 tab 2 times per day [Active]; - PMHx: 11:35 Depression; rb1 - PSHx: 11:35 None; rb1 - Immunization history:: Adult Immunizations up to date. - Social history:: Smoking status: Patient/guardian denies using tobacco. - Ebola Screening: : Patient negative for fever greater than or equal to 101.5 degrees Fahrenheit, and additional compatible Ebola Virus Disease symptoms. ROS: 12:14 Constitutional: Negative for fever, chills, and weight loss, Eyes: Negative for injury, jmm pain, redness, and discharge, ENT: Negative for injury, pain, and discharge, Neck: Negative for injury, pain, and swelling, Cardiovascular: Negative for chest pain, palpitations, and edema, Respiratory: Negative for shortness of breath, cough, wheezing, and pleuritic chest pain, Abdomen/GI: Negative for abdominal pain, nausea, vomiting, diarrhea, and constipation, : Negative for injury, bleeding, discharge, and swelling, MS/Extremity: Negative for injury and deformity, Skin: Negative for injury, rash, and discoloration. 12:14 Psych: Positive for suicidal ideation. 12:14 All other systems are negative. Exam: 12:14 Constitutional: This is a well developed, well nourished patient who is awake, alert, jmm and in no acute distress. Head/Face: atraumatic. Eyes: EOMI, no conjunctival erythema appreciated ENT: Moist Mucus Membranes Neck: Trachea midline, Supple Chest/axilla: Normal chest wall appearance and motion. Cardiovascular: Regular rate and rhythm. No edema appreciated Respiratory: Normal respirations, no respiratory distress appreciated Abdomen/GI: Non distended, soft Back: Normal ROM Skin: General appearance color normal MS/ Extremity: Moves all extremities, no obvious deformities appreciated, no edema noted to the lower extremities Neuro: Awake and alert, normal gait 12:20 Psych: Behavior/mood is depressed, Patient having thoughts of suicide. Denies suicidal [facility] plan. Delusions/hallucinations are not present. Vital Signs: 11:35 BP 153 / 90; Pulse 84; Resp 17; Temp 98.0(O); Pulse Ox 100% on R/A; Weight 68.95 kg; rb1 Height 6 ft. 0 in. (182.88 cm) (R); Pain 0/10; 13:00 BP 152 / 90; Pulse 69; Resp 17; Pulse Ox 99% on R/A; dh3 14:00 BP 151 / 87; Pulse 67; Resp 18; Pulse Ox 98% on R/A; dh3 16:30 BP 154 / 92; Pulse 78; Resp 18; Pulse Ox 100% on R/A; dh3 18:30 BP 168 / 97; Pulse 73; Resp 18; Pulse Ox 98% on R/A; dh3 22:18 BP 157 / 94; Pulse 72; Resp 16; Temp 97.6(O); Pulse Ox 99% on R/A; mt 11:35 Body Mass Index 20.61 (68.95 kg, 182.88 cm) rb1 MDM: 11:47 Patient medically screened. darryl 21:20 Data reviewed: vital signs, nurses notes. Counseling: I had a detailed discussion with christopher the patient and/or guardian regarding: the historical points, exam findings, and any diagnostic results supporting the discharge/admit diagnosis, lab results. ED course: Patient evaluated by Psychiatric response whom recommended inpatient admission. [facility] was contacted whom accepted transfer. . 01/22 11:54 Order name: Acetaminophen; Complete Time: 13:31 [facility] 01/22 11:54 Order name: Basic Metabolic Panel; Complete Time: 13: [facility] 01/22 11:54 Order name: CBC with Diff; Complete Time: 13: [facility] 01/22 11:54 Order name: ETOH Level; Complete Time: 13: [facility] 01/22 11:54 Order name: Hepatic Function; Complete Time: 13: [facility] 01/22 11:54 Order name: PT-INR; Complete Time: : [facility] 01/22 11:54 Order name: Ptt, Activated; Complete Time: 13: [facility] 01/22 11:54 Order name: Salicylate; Complete Time: 13: [facility] 01/22 11:54 Order name: Urine Drug Screen; Complete Time: 15:09 [facility] 01/22 11:54 Order name: EKG; Complete Time: 11:55 [facility] 01/22 14:43 Order name: Urine Culture [facility] 01/22 14:47 Order name: Urine Dipstick--Ancillary (enter results); Complete Time: 14:58 ar 01/22 17:34 Order name: Diet Regular; Complete Time: 17:35 [facility] 01/22 11:54 Order name: EKG - Nurse/Tech; Complete Time: 12:10 [facility] 01/22 11:54 Order name: IV Saline Lock; Complete Time: 12:10 [facility] 01/22 11:54 Order name: Labs collected and sent; Complete Time: 12:10 [facility] 01/22 11:54 Order name: Urine Dipstick-Ancillary (obtain specimen); Complete Time: 14:44 [facility] Administered Medications: 14:46 Drug: NS 0.9% 500 ml Route: IV; Rate: bolus; Site: right forearm; rb1 15:23 Follow up: IV Status: Completed infusion rb1 Disposition: 01/23 07:18 Co-signature as Attending Physician, Yoel Lewis MD I agree with the assessment and darryl plan of care. Disposition: 01/22/19 21:24 Transfer ordered to Other Acute Care Facility. Diagnosis is Suicidal ideations. - Reason for transfer: Higher level of care. - Accepting physician is [facility]. - Condition is Stable. - Problem is new. - Symptoms are unchanged. Signatures: Dispatcher [employer] EDYoel Cooper MD MD cha Mickail, Joel, PA PA [facility] Abena Hodges, [place] [facility] Rosalio Acharya RN RN [id number] Corrections: (The following items were deleted from the chart) 01/22 12:21 12:14 Constitutional: This is a well developed, well nourished patient who is awake, jmm alert, and in no acute distress. Head/Face: atraumatic. Eyes: EOMI, no conjunctival erythema appreciated ENT: Moist Mucus Membranes Neck: Trachea midline, Supple Chest/axilla: Normal chest wall appearance and motion. Cardiovascular: Regular rate and rhythm. No edema appreciated Respiratory: Normal respirations, no respiratory distress appreciated Abdomen/GI: Non distended, soft Back: Normal ROM Skin: General appearance color normal MS/ Extremity: Moves all extremities, no obvious deformities appreciated, no edema noted to the lower extremities Neuro: Awake and alert, normal gait Psych: Behavior is normal, Mood is normal, Patient is cooperative and pleasant [facility] 01/23 00:49 01/22 21:24 01/22/2019 21:24 Transfer ordered to Other Acute Care Facility. Diagnosis jb4 is Suicidal ideations. Reason for transfer: Higher level of care. Accepting physician is [facility]. Condition is Stable. Problem is new. Symptoms are unchanged. [facility]
--- NOTE | 2019-01-22 21:24 | ER ---
Nurse's Notes [facility] Name: Anil Dasilva Age: 78 yrs Sex: Male : 1940 Arrival Date: 01/22/2019 Time: 11:43 Bed 14 Private MD: Diagnosis: Suicidal ideations Presentation: 01/22 11:35 Presenting complaint: EMS states: Pt. is having suicidal ideation. Has no plan. Has a rb1 history of depression. Made a comment to his at breakfast that he was ready to just end it all. BP 172/98, P 87, 97% RA. 11:35 Method Of Arrival: EMS: [place] [id number] 11:35 Transition of care: patient was not received from another setting of care. Onset of rb1 symptoms was January 22, 2019. Risk Assessment: Do you want to hurt yourself or someone else? Patient reports no desire to harm self or others. Other: Denies having a plan to hurt himself or others. Initial Sepsis Screen: Does the patient meet any 2 criteria? No. Patient's initial sepsis screen is negative. Does the patient have a suspected source of infection? No. Patient's initial sepsis screen is negative. Care prior to arrival: None. 11:35 Acuity: NINA 3 rb1 11:40 Acuity: NINA 2 hb Triage Assessment: 11:35 General: Appears in no apparent distress. comfortable, Behavior is calm, cooperative, rb1 Denies fever. Pain: Denies pain. Neuro: Level of Consciousness is awake, alert, obeys commands, Oriented to person, place, time, situation. Cardiovascular: Capillary refill < 3 seconds is brisk in bilateral fingers. Respiratory: Airway is patent Respiratory effort is even, unlabored, Respiratory pattern is regular, symmetrical. GI: No signs and/or symptoms were reported involving the gastrointestinal system. : Parent/caregiver report the patient having Does self catheterization. Derm: Skin is pink, warm \T\ dry. Historical: - Allergies: 11:35 No Known Allergies; rb1 - Home Meds: 11:35 temazepam 30 mg Oral cap 1 cap once daily [Active]; mirtazapine 15 mg Oral tab 1 tab rb1 once daily [Active]; finasteride 5 mg oral tab 1 tab once daily [Active]; escitalopram oxalate 5 mg oral tab 1 tab once daily [Active]; diazepam 5 mg Oral tab 1 tab 2 times per day [Active]; - PMHx: 11:35 Depression; rb1 - PSHx: 11:35 None; rb1 - Immunization history:: Adult Immunizations up to date. - Social history:: Smoking status: Patient/guardian denies using tobacco. - Ebola Screening: : Patient negative for fever greater than or equal to 101.5 degrees Fahrenheit, and additional compatible Ebola Virus Disease symptoms. Screenin:35 Abuse screen: Denies threats or abuse. Nutritional screening: decreased appetite per rb1 pt. report. Tuberculosis screening: No symptoms or risk factors identified. Fall Risk None identified. Assessment: 11:35 General: See triage assessment. rb1 12:23 Reassessment: Patient appears in no apparent distress at this time. No changes from rb1 previously documented assessment. at bedside. 13:20 Reassessment: Patient appears in no apparent distress at this time. Patient and/or rb1 family updated on plan of care and expected duration. Pain level reassessed. Patient is alert, oriented x 3, equal unlabored respirations, skin warm/dry/pink. Pt. talking on his telephone Patient denies pain at this time. 14:20 Reassessment: Patient appears in no apparent distress at this time. No changes from rb1 previously documented assessment. 15:19 Reassessment: Patient appears in no apparent distress at this time. Patient and/or rb1 family updated on plan of care and expected duration. Pain level reassessed. Patient is alert, oriented x 3, equal unlabored respirations, skin warm/dry/pink. Pt. is watching TV. 16:19 Reassessment: Patient appears in no apparent distress at this time. No changes from rb1 previously documented assessment. 17:19 Reassessment: Patient appears in no apparent distress at this time. Patient and/or rb1 family updated on plan of care and expected duration. Pain level reassessed. Patient is alert, oriented x 3, equal unlabored respirations, skin warm/dry/pink. 18:00 Reassessment: Sister Shirley Johnson [phone]. 18:19 Reassessment: Patient appears in no apparent distress at this time. No changes from rb1 previously documented assessment. Patient denies pain at this time. 19:10 Reassessment: Patient appears in no apparent distress at this time. Patient and/or jb4 family updated on plan of care and expected duration. Pain level reassessed. Patient is alert, oriented x 3, equal unlabored respirations, skin warm/dry/pink. 20:25 Reassessment: Patient appears in no apparent distress at this time. Patient and/or jb4 family updated on plan of care and expected duration. Pain level reassessed. Patient is alert, oriented x 3, equal unlabored respirations, skin warm/dry/pink. Pt assisted to the restroom. cathed self, ambulated back to bed. 21:23 Reassessment: Patient appears in no apparent distress at this time. Patient and/or jb4 family updated on plan of care and expected duration. Pain level reassessed. Patient is alert, oriented x 3, equal unlabored respirations, skin warm/dry/pink. 22:30 Reassessment: Patient appears in no apparent distress at this time. Patient and/or jb4 family updated on plan of care and expected duration. Pain level reassessed. Patient is alert, oriented x 3, equal unlabored respirations, skin warm/dry/pink. 23:45 Reassessment: Patient appears in no apparent distress at this time. Patient and/or jb4 family updated on plan of care and expected duration. Pain level reassessed. Patient is alert, oriented x 3, equal unlabored respirations, skin warm/dry/pink. Transfer consent form signed. report called to CHAPIS Blake at receiving facility. 01/23 00:36 Reassessment: Patient appears in no apparent distress at this time. Patient and/or jb4 family updated on plan of care and expected duration. Pain level reassessed. Patient is alert, oriented x 3, equal unlabored respirations, skin warm/dry/pink. PT transferred to EMS stretcher for transport to receiving facility. IV dc'ed. no s/s of distress or pain noted. PT's belongings returned to pt and given to EMS for transfer to receiving facility. Vital Signs: 01/22 11:35 BP 153 / 90; Pulse 84; Resp 17; Temp 98.0(O); Pulse Ox 100% on R/A; Weight 68.95 kg; rb1 Height 6 ft. 0 in. (182.88 cm) (R); Pain 0/10; 13:00 BP 152 / 90; Pulse 69; Resp 17; Pulse Ox 99% on R/A; dh3 14:00 BP 151 / 87; Pulse 67; Resp 18; Pulse Ox 98% on R/A; dh3 16:30 BP 154 / 92; Pulse 78; Resp 18; Pulse Ox 100% on R/A; dh3 18:30 BP 168 / 97; Pulse 73; Resp 18; Pulse Ox 98% on R/A; dh3 22:18 BP 157 / 94; Pulse 72; Resp 16; Temp 97.6(O); Pulse Ox 99% on R/A; mt 11:35 Body Mass Index 20.61 (68.95 kg, 182.88 cm) rb1 ED Course: 08:30 Safety checks: Items removed: yes. Door open/sign placed on door: yes. Family/friend dh3 present: no. Sitter present: Yes. 11:35 Safety checks: Items removed: yes. Door open/sign placed on door: yes. Family/friend dh3 present: no. Sitter present: Yes. 11:35 Arm band placed on right wrist. rb1 11:35 Patient has correct armband on for positive identification. Placed in gown. Bed in low rb1 position. Call light in reach. Side rails up X 1. Pulse ox on. NIBP on. 11:43 Patient arrived in ED. em1 11:44 Twin Paredes PA is PHCP. [facility] 11:44 Yoel Lewis MD is Attending Physician. [facility] 11:45 Safety checks: Items removed: yes. Door open/sign placed on door: yes. Family/friend dh3 present: no. Sitter present: Yes. 11:46 Abena Hodges, RN is Primary Nurse. rb1 11:55 EKG done, by ED staff, reviewed by Twin CLINE. dh3 12:00 Safety checks: Items removed: yes. Door open/sign placed on door: yes. Family/friend dh3 present: no. Sitter present: Yes. 12:01 Initial lab(s) drawn, by me, sent to lab. Inserted saline lock: 20 gauge in right dh3 forearm, using aseptic technique. Blood collected. 12:15 Safety checks: Items removed: yes. Door open/sign placed on door: yes. Family/friend dh3 present: yes. Family/friends encouraged to stay with patient. Sitter present: Yes. 12:19 Triage completed. rb1 12:30 Safety checks: Items removed: yes. Door open/sign placed on door: yes. Family/friend dh3 present: yes. Family/friends encouraged to stay with patient. Sitter present: Yes. 12:45 Safety checks: Items removed: yes. Door open/sign placed on door: yes. Family/friend dh3 present: yes. Family/friends encouraged to stay with patient. Sitter present: Yes. 13:00 Safety checks: Items removed: yes. Door open/sign placed on door: yes. Family/friend dh3 present: yes. Family/friends encouraged to stay with patient. Sitter present: Yes. 13:05 Arlene from [facility] called could not complete the call due to pt not being ms medically cleared. Awaiting lab results at this time. 13:15 Safety checks: Items removed: yes. Door open/sign placed on door: yes. Family/friend em1 present: no. Sitter present: Yes. 13:30 Safety checks: Items removed: yes. Door open/sign placed on door: yes. Family/friend em1 present: no. Sitter present: Yes. 13:45 Safety checks: Items removed: yes. Door open/sign placed on door: yes. Family/friend em1 present: no. Sitter present: Yes. 14:00 Safety checks: Items removed: yes. Door open/sign placed on door: yes. Family/friend em1 present: no. Sitter present: Yes. 14:15 Safety checks: Items removed: yes. Door open/sign placed on door: yes. Family/friend dh3 present: no. Sitter present: Yes. 14:30 Safety checks: Items removed: yes. Door open/sign placed on door: yes. Family/friend dh3 present: no. Sitter present: Yes. 14:45 Safety checks: Items removed: yes. Door open/sign placed on door: yes. Family/friend dh3 present: no. Sitter present: Yes. 15:00 Safety checks: Items removed: yes. Door open/sign placed on door: yes. Family/friend dh3 present: no. Sitter present: Yes. 15:12 Called Maryam from [facility] to come evaluate pt. ms 15:15 Safety checks: Items removed: yes. Door open/sign placed on door: yes. Family/friend dh3 present: no. Sitter present: Yes. 15:30 Safety checks: Items removed: yes. Door open/sign placed on door: yes. Family/friend dh3 present: no. Sitter present: Yes. 15:45 Safety checks: Items removed: yes. Door open/sign placed on door: yes. Family/friend dh3 present: no. Sitter present: Yes. 16:00 Safety checks: Items removed: yes. Door open/sign placed on door: yes. Family/friend dh3 present: no. Sitter present: Yes. 16:15 Safety checks: Items removed: yes. Door open/sign placed on door: yes. Family/friend dh3 present: no. Sitter present: Yes. 16:30 Safety checks: Items removed: yes. Door open/sign placed on door: yes. Family/friend dh3 present: no. Sitter present: Yes. 16:45 Safety checks: Items removed: yes. Door open/sign placed on door: yes. Family/friend dh3 present: no. Sitter present: Yes. 17:00 Safety checks: Items removed: yes. Door open/sign placed on door: yes. Family/friend dh3 present: no. Sitter present: Yes. 17:15 Safety checks: Items removed: yes. Door open/sign placed on door: yes. Family/friend dh3 present: no. Sitter present: Yes. 17:30 Safety checks: Items removed: yes. Door open/sign placed on door: yes. Family/friend dh3 present: no. Sitter present: Yes. 17:45 Safety checks: Items removed: yes. Door open/sign placed on door: yes. Family/friend dh3 present: no. Sitter present: Yes. 18:00 Safety checks: Items removed: yes. Door open/sign placed on door: yes. Family/friend dh3 present: no. Sitter present: Yes. 18:15 Safety checks: Items removed: yes. Door open/sign placed on door: yes. Family/friend dh3 present: no. Sitter present: Yes. 18:30 Safety checks: Items removed: yes. Door open/sign placed on door: yes. Family/friend dh3 present: no. Sitter present: Yes. 18:45 Safety checks: Items removed: yes. Door open/sign placed on door: yes. Family/friend dh3 present: no. Sitter present: Yes. 19:00 Safety checks: Items removed: yes. Door open/sign placed on door: yes. Family/friend dh3 present: no. Sitter present: Yes. 19:00 Report given to CHAPIS Castañeda. rb1 19:15 Safety checks: Items removed: yes. Door open/sign placed on door: yes. Family/friend mt present: no. Sitter present: Yes. 19:30 Safety checks: Items removed: yes. Door open/sign placed on door: yes. Family/friend mt present: no. Sitter present: Yes. 19:45 Safety checks: Items removed: yes. Door open/sign placed on door: yes. Family/friend mt present: no. Sitter present: Yes. 20:00 Safety checks: Items removed: yes. Door open/sign placed on door: yes. Family/friend mt present: no. Sitter present: Yes. Other: [facility] Yarn Comber speaking to patient. 20:15 Safety checks: Items removed: yes. Door open/sign placed on door: yes. Family/friend mt present: no. Sitter present: Yes. 20:30 Safety checks: Items removed: yes. Door open/sign placed on door: yes. Family/friend mt present: yes. Sitter present: Yes. 20:45 Safety checks: Items removed: yes. Door open/sign placed on door: yes. Family/friend mt present: yes. Sitter present: Yes. 20:50 spoke with Lou from [facility]. [facility] 21:00 Safety checks: Items removed: yes. Door open/sign placed on door: yes. Family/friend mt present: no. Sitter present: Yes. 21:15 Safety checks: Items removed: yes. Door open/sign placed on door: yes. Family/friend mt present: no. Sitter present: Yes. 21:30 Safety checks: Items removed: yes. Door open/sign placed on door: yes. Family/friend mt present: no. Sitter present: Yes. 21:45 Safety checks: Items removed: yes. Door open/sign placed on door: yes. Family/friend mt present: no. Sitter present: Yes. 22:00 Safety checks: Items removed: yes. Door open/sign placed on door: yes. Family/friend mt present: no. Sitter present: Yes. 22:15 Safety checks: Items removed: yes. Door open/sign placed on door: yes. Family/friend mt present: no. Sitter present: Yes. 22:30 Safety checks: Items removed: yes. Door open/sign placed on door: yes. Family/friend mt present: no. Sitter present: Yes. 22:45 Safety checks: Items removed: yes. Door open/sign placed on door: yes. Family/friend mt present: no. Sitter present: Yes. 23:00 Safety checks: Items removed: yes. Door open/sign placed on door: yes. Family/friend mt present: no. Sitter present: Yes. 23:15 Safety checks: Items removed: yes. Door open/sign placed on door: yes. Family/friend mt present: no. Sitter present: Yes. 23:30 Safety checks: Items removed: yes. Door open/sign placed on door: yes. Family/friend mt present: no. Sitter present: Yes. 01/23 00:36 No provider procedures requiring assistance completed. IV discontinued, intact, jb4 bleeding controlled, No redness/swelling at site. Pressure dressing applied. Administered Medications: 01/22 14:46 Drug: NS 0.9% 500 ml Route: IV; Rate: bolus; Site: right forearm; rb1 15:23 Follow up: IV Status: Completed infusion rb1 Outcome: 21:24 ER care complete, transfer ordered by MD. white 01/23 00:36 Transferred by ground EMS [facility]. Transfer form completed. jb4 Condition: stable Discharge instructions given to patient, Instructed on the need for transfer, Demonstrated understanding of instructions. 00:49 Patient left the ED. jb4 Addendum: 01/25/2019 10:10 Addendum: Culture Results: Positive urine culture. Phone call Attempt #1 faxed culture s s report to [facility] ATTN CHAPIS Jimenes. Signatures: Twin Paredes PA PA jmm Solis, Maria ms Martinez, Marco em1 Lulu Hanna RN RN ss Abena oHdges RN RN rb1 Rajni Tolbert RN RN Rosalio Acharya RN RN [facility] Marissa Watson de She Martínez [facility] Sesar Garcia mw2 Corrections: (The following items were deleted from the chart) 01/22 13:10 13:05 Arlene from [facility] called ms ms 01/23 01:46 00:36 Reassessment: Patient appears in no apparent distress at this time. Patient jb4 and/or family updated on plan of care and expected duration. Pain level reassessed. Patient is alert, oriented x 3, equal unlabored respirations, skin warm/dry/pink. PT transferred to EMS stretcher for transport to receiving facility. IV dc'ed. no s/s of distress or pain noted. jb4
--- NOTE | 2019-01-23 07:47 | EKG ---
Test Date: 2019-01-22 Test Time: 11:53:17 Shade Cutter: SHRADDHA MEASUREMENT RESULTS: Intervals: Rate: 77 MT: 162 QRSD: 140 QT: 408 QTc: 461 Reseda: P: 60 MT: 162 QRS: -70 T: 65 INTERPRETIVE STATEMENTS: Normal sinus rhythm Right bundle branch block Left anterior fascicular block Bifascicular block Abnormal ECG Compared to ECG 08/01/2018 14:52:47 No significant changes Electronically Signed On 01-23-19 07:46:34 CDT by Flynn Lynch
== END 2019-01-23 00:49 ==
LOC: ER 11:38
DX: F32.9 Major depressive disorder, single episode, unspecified (principal); R45.851 Suicidal ideations
CPT/HCPCS: 36415; 80048; 80076; 80307; 80320; 80329; 81003; 85025; 85610; 85730; 87077; 87086; 87088; 87186; 93005; 96360; 99285